=== PATIENT | female | born 1980 | race Hispanic/Latino ===

== ENCOUNTER 2025-02-17 12:12 | Inpatient (IN) | payer SELFPAY ==
[~2025-02-17] VITALS: Ht 165.1 cm; Wt 91.0 kg
[2025-02-17] MEDS ORDERED: NITROGLYCERIN 0.4 MG SL TAB SL PRN (13:00)
[2025-02-17] MEDS ORDERED: LACTULOSE 20 GM/30 ML UDCUP PO PRN (13:00)
[2025-02-17] MEDS ORDERED: DEXTROSE 50%-WATER 50 ML DISP.SYRIN IV PRN (13:00)
[2025-02-17] MEDS ORDERED: MAGNESIUM 2GM PREMIX 50ML 50 ML IV PRN (13:00)
[2025-02-17] MEDS ORDERED: MAG/ALUM/SIMETH 30 ML UDCUP PO PRN (13:00)
[2025-02-17] MEDS ORDERED: guaiFENesin-DM 200/20MG 10ML PO PRN (13:00)
[2025-02-17] MEDS ORDERED: GLUCAGON 1MG KIT 1 MG ML IM PRN (13:00)
[2025-02-17] MEDS ORDERED: PoTASSium chl 10% ELIXIR 20MEQ 20 MEQ/15 ML UDCUP PO PRN (13:00)
[2025-02-17] MEDS ORDERED: FAMOTIDINE 20MG VIAL IV PRN (13:00)
[2025-02-17 13:23] LABS: IMMATURE GRANULOCYTE ABSOLUTE 0.06 K/uL (0-1); NUCLEATED RED BLOOD CELLS 0.0 % (0.0-0.19); PLATELET COUNT (AUTO) 368 K/uL (130-400); RED BLOOD CELL COUNT(AUTO) 4.72 MIL/uL (4.00-5.50); RED CELL DISTRIBUTION WIDTH 12.0 % (11.0-15.5); WHITE BLOOD COUNT (AUTO) 9.6 K/uL (4.8-10.8)
[2025-02-17 13:31] LABS: APPEARANCE,URINE CLOUDY (CLEAR); GLUCOSE, URINE (UA) NEGATIVE (NEGATIVE); LEUKOCYTE ESTERASE ,URINE NEGATIVE Leu/uL (NEGATIVE); NITRATE,URINE NEGATIVE (NEGATIVE); OCCULT BLOOD,URINE LARGE (NEGATIVE)
[2025-02-17 13:33] LABS: INFLUENZA TYPE B Negative For Type B (NEGATIVE)
[2025-02-17] MEDS: ZOSYN 3.375GM+NS 50ML 50 ML IV SCH (13:34)
[2025-02-17] MEDS: 0.9%NACL 1000ML 1,000 ML IV SCH (13:34)
[2025-02-17 13:39] LABS: SQUAMOUS EPITHELIAL CELL,UR MOD /HPF (0-2)
[2025-02-17 13:40] LABS: AMPHET/METH SCREEN,URINE NEGATIVE (NEGATIVE); BARBITURATE SCREEN, URINE NEGATIVE (NEGATIVE); CANNABINOID SCREEN,URINE NEGATIVE (NEGATIVE); COCAINE SCREEN,URINE NEGATIVE (NEGATIVE)
[2025-02-17 13:44] LABS: INFLUENZA TYPE A Positive For Type A (NEGATIVE)
--- NOTE | 2025-02-17 16:07 | HP ---
[facility] HISTORY AND PHYSICAL Date of Service: Feb 17, 2025 Time of Service: 16:00 PCP: Dr. Raygoza Admitting: Dr Hernandez, Allergies: No Allergy Information Available, No Known Drug Allergies HISTORY OF PRESENT ILLNESS: [ Patient is 44 years old female with a past medical history of cholecystectomy and left breast mass s/p biopsy, who came to emergency department from Dr. Jana robledo office for evaluation of possible abscess on left breast. Recently patient was found to have a mass on her left breast. Dr. Lopez order ultrasound breaths and showed abnormalities. Patient underwent biopsy and aspiration of the fluids from the left breast on February 06 2025 at [facility]. Patient then was sent home. Today patient came to Dr. Lopez office for follow-up and there complain of left breast pain, redness and swelling. CLAUDINE La from Dr Hammonds office, requested that the patient was sent to emergency department for further recommendations were Dr. Hammonds would be consulted for possible I and D. Most recent vital signs temperature 98.1 pulse 82 respirations 16 blood pressure 127/78 patient is on room air satting 99%. WBC 9.6 hemoglobin 14.4 hematocrit 42.6 platelets 368. Urinalysis negative. Influenza A positive influenza B negative POA Toxicology negative. Lactic acid 1.0. Chest CT pending Patient will be admitted under hospitalist care for further evaluation/recommendation. Surgeon was consulted] REVIEW OF SYSTEMS CONSTITUTIONAL: Denies fevers, chills, or night sweats. No unintentional weight loss reported. NEUROLOGICAL: Denies headache, amaurosis fugax, motor weakness, sensory deficit, vertigo/spinning sensation, gait abnormalities, or tremors. ENT: No hearing loss, otalgia, otorrhea, rhinitis, rhinorrhea, hoarseness, or sore throat. CARDIOVASCULAR: Denies any exertional angina, dyspnea on exertion, orthopnea, paroxysmal nocturnal dyspnea, palpitations, life-threatening arrhythmias, claudication. PULMONARY: Denies any shortness of breath, cough, phlegm/sputum, hemoptysis, pl euritic chest pain. SLEEP: Denies morning headaches, daytime somnolence or napping. Denies difficulty falling asleep, staying asleep, waking from sleep. Denies knowledge of snoring. GASTROINTESTINAL: Denies any type of dysphagia to either liquids or solids. Denies nausea, vomiting, pyrosis, early satiety, abdominal pain, diarrhea, constipation, or changes in stool consistency or caliber. Denies coffee-ground emesis, hematemesis, hematochezia, or melanotic stools. GENITOURINARY: Denies frequency, urgency, nocturia, hematuria or incontinence (Storage/Irritative symptoms.) Low urinary stream, straining to void, urinary intermittency or hesitancy, splitting of the voiding stream, terminal dribbling. ENDOCRINOLOGIC: Denies polyuria, polydipsia, polyphagia or heat/cold intolera nces. HEMATOLOGIC: Denies thrombophilia/previous clots, or coagulopathy/bleeding disorders. ONCOLOGIC: Denies personal history of malignancy. DERMATOLOGIC: Denies rashes or pruritus. Complains of left breast pain, redness and swelling PSYCHIATRIC: Denies any suicidal or homicidal ideation. Denies hallucinations. PAST MEDICAL HISTORY: [ Left breast mass, kidney stones] PAST SURGICAL HISTORY: [ Cholecystectomy ] PAST SOCIAL HISTORY: [ Patient denies smoking. Patient denies any drug illicit. Patient denies alcohol use ] FAMILY HISTORY: [ Patient lives at home with the two kids. Patient dependent] Coded Allergies: No Known Allergies (Unverified Allergy, Unknown, 02/17/25) PHYSICAL EXAM GENERAL APPEARANCE: The patient is awake, alert, and oriented, in no acute cardiopulmonary distress. NEUROLOGICAL: Cranial nerves II-XII grossly intact. Motor is 5/5 in bilateral upper and lower extremities proximal to distal. No sensory deficits. HEENT: Face is symmetric. Pupils are equal and reactive. Extraocular movements are intact. NECK: Supple. No JVD. No thyromegaly. No submental, submandibular, pre- /postauricular, occipital or supraclavicular lymphadenopathy. CHEST: Normal chest expansion. No Telemetry. LUNGS: Absence of any rales, rhonchi or any wheezing. CARDIOVASCULAR: Regular. S1 and S2 normal. No appreciable rubs, murmurs or gallops. ABDOMEN: Soft, nontender, and nondistended. There is no rebound, voluntary guarding, or rigidity. : Deferred. No [place]. EXTREMITIES: Non-edematous and not cyanotic. No clubbing. Good capillary refill. SKIN: No skin breakdown. Vital Sign (Last 24 Hours) 02/17/25 12:13 Temp 98.1 Pulse 82 Resp 16 B/P (MAP) 127/78 Pulse Ox 99 O2 Delivery Room Air O2 Flow Rate 0 LABS: Laboratory: Test 02/17/25 13:16 02/17/25 13:13 02/17/25 13:10 Range/Units Influenza Type A Antigen Positive For Type A *A NEGATIVE Influenza Type B Antigen Negative For Type B NEGATIVE Urine Opiates Screen NEGATIVE NEGATIVE Urine Barbiturates Screen NEGATIVE NEGATIVE Urine Phencyclidine Screen NEGATIVE NEGATIVE Urine Amphetamines Screen NEGATIVE NEGATIVE Urine Benzodiazepines Screen NEGATIVE NEGATIVE Urine Cocaine Screen NEGATIVE NEGATIVE Urine Marijuana (THC) Screen NEGATIVE NEGATIVE White Blood Count 9.6 4.8-10.8 K/uL Red Blood Count 4.72 4.00-5.50 MIL/uL Hemoglobin 14.4 12.0-16.0 g/dL Hematocrit 42.6 36-48 % Mean Corpuscular Volume 90.3 79-99 fL Mean Corpuscular Hemoglobin 30.5 27.0-33.0 pg Mean Corpuscular Hemoglobin Concent 33.8 32.0-36.0 g/dL Red Cell Distribution Width 12.0 11.0-15.5 % Platelet Count 368 130-400 K/uL Mean Platelet Volume 8.8 7.5-10.5 fL Immature Granulocyte % (Auto) 0.6 0-1 % Neutrophils (%) (Auto) 71.7 40.0-77.0 % Lymphocytes (%) (Auto) 17.5 L 21.0-51.0 % Monocytes (%) (Auto) 5.0 3.0-13.0 % Eosinophils (%) (Auto) 4.5 0.0-8.0 % Basophils (%) (Auto) 0.7 0.0-5.0 % Neutrophils # (Auto) 6.8 1.8-7.7 K/uL Lymphocytes # (Auto) 1.7 1.0-4.8 K/uL Monocytes # (Auto) 0.5 0.1-1.0 K/uL Eosinophils # (Auto) 0.43 0.00-0.70 K/uL Basophils # (Auto) 0.07 0.00-0.20 K/uL Absolute Immature Granulocyte (auto 0.06 0-1 K/uL Nucleated Red Blood Cells 0.0 0.0-0.19 % Urine Color COLORLESS YELLOW Urine Appearance CLOUDY H CLEAR Urine pH 5.5 5.0-8.0 Urine Specific [place] 1.005 1.001-1.031 Urine Protein NEGATIVE NEGATIVE mg/dL Urine Glucose (UA) NEGATIVE NEGATIVE mg/dL Urine Ketones NEGATIVE NEGATIVE mg/dL Urine Occult Blood LARGE H NEGATIVE Urine Nitrate NEGATIVE NEGATIVE Urine Bilirubin NEGATIVE NEGATIVE mg/dL Urine Urobilinogen 0.2 0.2-1.0 mg/dL Urine Leukocyte Esterase NEGATIVE NEGATIVE Sanjana/uL Urine RBC 2-5 H 0-1 /HPF Urine WBC 2-5 H 0-1 /HPF Urine Squamous Epithelial Cells MOD 0-2 /HPF Urine Bacteria MOD None Seen /HPF Lactic Acid Level 1.0 0.8-2.5 mmol/L Current Medications Medications (Trade) Dose Ordered Sig/Katina Route PRN Reason Start Time Stop Time Status Last Admin Dose Admin Acetaminophen (TYLenol 325MG TAB) 650 mg Q4H PRN PO MILD PAIN (1-3) 02/17/25 13:00 03/19/25 12:59 Acetaminophen (TYLenol 325MG TAB) 650 mg Q6H PRN PO TEMPERATURE GREATER THAN 101.5 02/17/25 13:00 03/19/25 12:59 Acetaminophen (TYLenol 325MG TAB) 650 mg Q6H PRN PO MILD PAIN (1-3) 02/17/25 13:00 02/17/25 13:06 DC Al Hydroxide/Mg Hydroxide (MAALox PLUS 30ML) 30 ml Q6H PRN PO INDIGESTION 02/17/25 13:00 03/19/25 12:59 Dextrose (D50w) 50 ml AD PRN IV HYPOGLYCEMIA PROTOCOL 02/17/25 13:00 03/19/25 12:59 Diphenhydramine HCl (BENAdryl INJ) 25 mg Q6H PRN IV SEVERE ITCHING/RASH 02/17/25 13:00 03/19/25 12:59 Famotidine (Pepcid 20mg Vial) 20 mg BID IV 02/17/25 21:00 03/19/25 20:59 Famotidine (Pepcid 20mg Vial) 20 mg BID PRN IV NAUSEA/VOMITING 02/17/25 13:00 02/17/25 13:06 DC Glucagon (Glucagon 1mg Kit) 1 mg AD PRN IM HYPOGLYCEMIA PROTOCOL 02/17/25 13:00 03/19/25 12:59 Guaifenesin/ Dextromethorphan (RobiTUSSin DM 200/20MG 10ML) 10 ml Q4H PRN PO COUGH 02/17/25 13:00 03/19/25 12:59 Heparin Sodium (Porcine) (HEParin 5,000 UNIT VIAL) 5,000 unit BID SQ 02/17/25 21:00 03/19/25 20:59 Hydralazine HCl (APRESOLine 20MG INJ) 10 mg Q6H PRN IV For:SBP above 160;DBP above 90 02/17/25 13:00 03/19/25 12:59 Ibuprofen (moTRIN) 800 mg Q8H PRN PO MODERATE PAIN (4-6) 02/17/25 13:00 03/19/25 12:59 Insulin Human Regular (humuLIN R 100 UNIT/ML 3ML) INSULIN SLIDING SCAL... ACHS SQ 02/17/25 16:30 03/19/25 16:29 Ketorolac Tromethamine (toRADol) 15 mg Q8H PRN IV MODERATE PAIN (4-6) 02/17/25 13:00 02/17/25 13:06 DC Lactulose (Constulose 20gm/ 30ml Udcup) 20 gm BID PRN PO CONSTIPATION 02/17/25 13:00 03/19/25 12:59 Magnesium Sulfate 50 ml @ 0 mls/hr PROTOCOL PRN IV other 02/17/25 13:00 03/19/25 12:59 Morphine Sulfate (morPHINE 2MG SYG) 1 mg Q4H PRN IVP SEVERE PAIN (7-10) 02/17/25 13:00 02/24/25 12:59 Nitroglycerin (Nitrostat) 0.4 mg PROTOCOL PRN SL CHEST PAIN 02/17/25 13:00 03/19/25 12:59 Ondansetron HCl (zoFRAN 4MG INJ) 4 mg Q6H PRN IV NAUSEA/VOMITING 02/17/25 13:00 03/19/25 12:59 Oxycodone/ Acetaminophen (perCOCET) 1 tab Q6H PRN PO SEVERE PAIN (7-10) 02/17/25 13:00 02/17/25 13:06 DC Piperacillin Sod/ Tazobactam Sod 50 ml @ 12.5 mls/hr ZOSY8 IV 02/17/25 13:00 02/27/25 12:59 02/17/25 13:34 12.5 MLS/HR Potassium Chloride 100 ml @ 100 mls/hr AD PRN IV POTASSIUM PROTOCOL 02/17/25 13:00 03/19/25 12:59 Potassium Chloride (K-Dur/Klor-Con 20meq) 20 meq AD PRN PO POTASSIUM PROTOCOL 02/17/25 13:00 03/19/25 12:59 Potassium Chloride (KCl 10% Elixir 20meq/15ml) 20 meq AD PRN PO POTASSIUM PROTOCOL 02/17/25 13:00 03/19/25 12:59 Sodium Chloride 1,000 ml @ 100 mls/hr Q10H IV 02/17/25 13:00 03/19/25 12:59 02/17/25 13:34 100 MLS/HR Zolpidem Tartrate (AmbIEN) 5 mg HS PRN PO INSOMNIA 02/17/25 13:00 03/19/25 12:59 DIAGNOSTICS / RADIOLOGY: [ ] ASSESSMENT: [Left breast abscess POA Recent history of left breast mass s/p biopsy with fluid aspiration POA Influenza a and positive POA Hypertension POA Hyperlipidemia POA History of kidney stones POA History of cholecystectomy POA ] PLAN: [Patient admitted to medical-surgical floor with telemetry Continue Zosyn antibiotics Normal saline at 100 mL/hour Tamiflu for influenza A positive Surgeon consulted CT chest without contrast pending Initiate hyper and hypoglycemia protocol Initiate hypomagnesemia protocol Hypokalemia protocol Blood culture pending I's and nose per shift Daily weights PRN medication ordered Culture urine Culture blood A.m. labs Cardiac diet ] ADVANCED CARE PLANNING 1. Which of the following were discussed? Hospice Care - Yes / No Therapeutic options - Yes / No Advance Directives - Yes / No Other discussions - 2. Discussed with who? Patient 3. Voluntary nature of this service was explained to the patient? Yes / No 4. Amount of time spent - __ more than 35 minutes 5. Reviewed by Physician? (if this service was performed by NPP) Yes / No ATTESTATION BY PHYSICIAN I have seen and examined the patient. I reviewed the documentation, medical decision making, and treatment plan as noted by the mid-level provider above. I agree with the findings and plan of care. ARIC HERNANDEZ MD, KATARZYNA B FNP Feb 17, 2025 16:07
--- NOTE | 2025-02-17 16:14 | NUR ---
CLAUDINE RANDALL AT THE BEDSIDE. GENERAL SURGERY CONSULT COMPLETE
--- NOTE | 2025-02-17 17:04 | CONS ---
CONSULT NOTE: Consulting physician: Dr. Hernandez Consulting service: General surgery Reason for consultation: Left breast abscess History of present illness: This is a 44-year-old female known to our practice after undergoing right breast I and D by Dr. Lopez has been following our practice for concerns of developing left breast mass versus abscess. Patient has had gone for imaging were concerns of abscess noted in purulent fluid was aspirated. Multiple biopsies taken. Patient has had follow up in clinic today and due to concerns of continued abscess was referred to the hospital for further evaluation. Patient is seen in ER resting. On exam left breast areola with induration and tenderness with no active drainage noted. Patient is currently pending CT to chest. WBCs 9.6 with a hemoglobin of 14.4. Patient is currently on IV fluids and IV antibiotics and NPO Medical history: Surgical history: Previous right breast I and D Cholecystectomy Review of systems: General: No Fever, No Chills, No Night Sweats, No Fatigue, No Malaise, No Appetite, No Other HEENT: No Head Aches, No Visual Changes, No Eye Pain, No Ear Pain, No Dysphasia, No Sinus Congestion, No Post Nasal Drip, No Sore Throat, No Other Pulmonary: No Dyspnea, No Cough, No Pleuritic Chest Pain, No Other Cardiovascular: No: Chest Pain, Palpitations, Orthopnea, Paroxysmal No Dyspnea, Edema, Lt Headedness, Other Gastrointestinal: No: Nausea, Vomiting, Diarrhea, Constipation, Melena, Hematochezia, Other Genitourinary: No Dysuria, No Frequency, No Incontinence, No Hematuria, No Retention, No Other Musculoskeletal: No: other, neck pain, shoulder pain, arm pain, back pain, hand pain, leg pain, foot pain Skin: No Urticaria, No Rash, No Other Neurological: No: Weakness, Numbness, Incoordination, Change in speech, Confusion, Seizures, Other Physical exam: General: Awake alert and oriented Heart: Regular rate and rhythm} Lungs: Clear to auscultation no distress Abdomen: [Soft, nontender, nondistended Left breast areola with a induration and tenderness and possible fluctuance Assessment: This is a 44-year-old female with concerns of left breast abscess Plan: At this point in time patient will be started on warm compresses Patient to be allowed diet We will await CT findings Possible need for I and D if imaging consistent with the abscess Dr. Tucker to be updated in patient's status and surgical team to follow patient closely Surgical case has been discussed with my supervising physician in the above plan was formulated and agreed upon Supervising physicians evaluation the patient be done within next 24 hours We appreciate the hospitalist team for us to participate in patient's care. Greater than 55 minutes of time spent patient, reviewing chart, working on documentation PRAKASH KNOTT Jr. PAC Feb 17, 2025 17:04
[2025-02-17] MEDS: FAMOTIDINE 20MG VIAL IV SCH (20:59)
[2025-02-17] MEDS: OSELTAMIVIR PHOSPHATE 75 MG CAP PO SCH (20:59)
[2025-02-17 22:20] VITALS: BP 135/77; PULSE 80; RESP 18; TEMP 98; O2SAT 100
--- NOTE | 2025-02-17 22:20 | NUR ---
ARRIVAL PATIENT ALERT AND ORIENTED TIMES 4. PLAN OF CARE DISCUSSED WITH HER AND SHE VERBALIZED UNDERSTANDING. SHE ONLY TAKES 2 VITAMINS AT HOME. SHE IS ON HER MENSTRUAL CYCLE RIGHT NOW. WARM PACKS APPLIED TO HER LEFT BREAST ORDERED. SHE HAS SHOWERED ON ARRIVAL. SHE HAS MILD TO MODERATE LEFT BREAST PAIN RELIEVED BY PAIN MEDICATION AND WARM PACKS. SHE HAS SLEPT ABOUT 4 HOURS TONIGHT. SHE IS AMBULATORY WITHOUT HELP. PICTURES TAKEN OF HER LEFT BREAST AREA WITH IPAD. CALL LIGHT WITHIN REACH, BED ALARM ON, 2 SIDE RAILS UP. WILL CONTINUE TO MONITOR PATIENT.
[2025-02-17] MEDS ORDERED: MVIT PO (23:00)
[2025-02-17] MEDS ORDERED: VITA100059 PO (23:00)
[2025-02-18] VITALS (7 sets, daily range): BP systolic 96–123; BP diastolic 63–73; PULSE 74–93; RESP 16–20; TEMP 97.6–98.8; O2SAT 93
[2025-02-18 05:47] LABS: IMMATURE GRANULOCYTE ABSOLUTE 0.02 K/uL (0-1); NUCLEATED RED BLOOD CELLS 0.0 % (0.0-0.19); PLATELET COUNT (AUTO) 284 K/uL (130-400); RED BLOOD CELL COUNT(AUTO) 3.87 MIL/uL (4.00-5.50); RED CELL DISTRIBUTION WIDTH 11.9 % (11.0-15.5); WHITE BLOOD COUNT (AUTO) 8.1 K/uL (4.8-10.8)
[2025-02-18 06:20] LABS: ASPARTATE AMINOTRANSFERASE 16.0 U/L (10-37); CREATINE KINASE, TOTAL 62.0 U/L (21-232); CREATININE 0.7 mg/dL (0.5-1.0); GLOMERULAR FILTR. RATE CALC 111.0 mL/min (>90); GLUCOSE,RANDOM 90.0 mg/dL (70-105); SODIUM SERUM 138.0 mmol/L (136-145); TOTAL PROTEIN, SERUM 6.8 g/dL (6.0-8.3); UREA NITROGEN, BLOOD 13.0 mg/dL (7-18)
[2025-02-18] MEDS: PoTASSium chloRIDE 20MEQ ER 20 MEQ ERTAB PO PRN (06:30)
--- NOTE | 2025-02-18 10:22 | HMCIMG ---
EXAM: CT Chest Without IV contrast. CLINICAL HISTORY: abscess left breast TECHNIQUE: Axial computed tomography images of the chest without intravenous contrast. COMPARISON: None provided. FINDINGS: LUNGS: Pulmonary nodule measuring 4 mm along the left upper lobe. A 3.6 mm calcified pleural nodule along the right lower lobe. The rest of the lungs appear essentially clear. CHEST WALL / BREASTS: Ill-defined multifocal hypodense areas within the left breast parenchyma, predominantly involving the outer and lower quadrant, with surrounding fat stranding and a tiny subcentimeter-sized adjacent calcific focus. It abuts the overlying skin and nipple with possible nipple retraction. No evidence of infiltration of the underlying chest wall musculature. The largest collection measures 62 x 45 mm and 41 x 24 mm. OSSEOUS STRUCTURES: Normal.PLEURAL SPACES: No evidence of pneumothorax. No pleural effusion. HEART: No cardiomegaly. No significant pericardial effusion. LYMPH NODES: A few subcentimeter-sized bilateral axillary (left more than right) lymph nodes. UPPER ABDOMEN: The upper abdominal solid organs are unremarkable. BONES: No acute osseous abnormality. IMPRESSION: Study limited withot contrast. Left breast multifocal hypodense areas with surrounding fat stranding, consistent with breast abscess. Largest collection measures 62 x 45 mm. Underlying mass is not excluded. 4 mm nodule in the left upper lobe. A follow-up CT 12 months is recommended. /Ilene
--- NOTE | 2025-02-18 12:09 | NUR ---
DCP:HOME Pt currently lives at home with her mother and 2 young children. Pt receives $778 in SNAP benefits. Pt denies any DME, home health, or provider services. Pt states that she is able to complete ADLs independently. PCP is Dr. Raygoza and uses [facility] for any RX needs. At DC pt will want to go home and family can assist with transportation.
--- NOTE | 2025-02-18 13:51 | PN ---
[facility] PROGRESS NOTE Date of Service: Feb 18, 2025 Time of Service: 13:50 SUBJECTIVE: 02/18 patient remains admitted to medical floor, comfortably in bed, no acute events overnight, alert oriented x3, hemodynamically stable, afebrile, saturating normal on room air. Hemoglobin 8.9, hematocrit 34.4. Examination done with a female nurse staff at bedside shows an area of induration left breast area, next to the areola. Patient evaluated by General surgery, patient may require incision and drainage. We will follow up. REVIEW OF SYSTEMS CONSTITUTIONAL: Denies fevers, chills, or night sweats. No unintentional weight loss reported. NEUROLOGICAL: Denies headache, amaurosis fugax, motor weakness, sensory deficit, vertigo/spinning sensation, gait abnormalities, or tremors. ENT: No hearing loss, otalgia, otorrhea, rhinitis, rhinorrhea, hoarseness, or sore throat. CARDIOVASCULAR: Denies any exertional angina, dyspnea on exertion, orthopnea, paroxysmal nocturnal dyspnea, palpitations, life-threatening arrhythmias, claudication. PULMONARY: Denies any shortness of breath, cough, phlegm/sputum, hemoptysis, pleuritic chest pain. SLEEP: Denies morning headaches, daytime somnolence or napping. Denies difficulty falling asleep, staying asleep, waking from sleep. Denies knowledge of snoring. GASTROINTESTINAL: Denies any type of dysphagia to either liquids or solids. Denies nausea, vomiting, pyrosis, early satiety, abdominal pain, diarrhea, constipation, or changes in stool consistency or caliber. Denies coffee-ground emesis, hematemesis, hematochezia, or melanotic stools. GENITOURINARY: Denies frequency, urgency, nocturia, hematuria or incontinence (Storage/Irritative symptoms.) Low urinary stream, straining to void, urinary intermittency or hesitancy, splitting of the voiding stream, terminal dribbling. ENDOCRINOLOGIC: Denies polyuria, polydipsia, polyphagia or heat/cold intolerances. HEMATOLOGIC: Denies thrombophilia/previous clots, or coagulopathy/bleeding disorders. ONCOLOGIC: Denies personal history of malignancy. DERMATOLOGIC: Denies rashes or pruritus. Complains of left breast pain, redness and swelling PSYCHIATRIC: Denies any suicidal or homicidal ideation. Denies hallucinations. PHYSICAL EXAM GENERAL APPEARANCE: The patient is awake, alert, and oriented, in no acute cardiopulmonary distress. NEUROLOGICAL: Cranial nerves II-XII grossly intact. Motor is 5/5 in bilateral upper and lower extremities proximal to distal. No sensory deficits. HEENT: Face is symmetric. Pupils are equal and reactive. Extraocular movements are intact. NECK: Supple. No JVD. No thyromegaly. No submental, submandibular, pre-/pos tauricular, occipital or supraclavicular lymphadenopathy. CHEST: Normal chest expansion. No Telemetry. LUNGS: Absence of any rales, rhonchi or any wheezing. CARDIOVASCULAR: Regular. S1 and S2 normal. No appreciable rubs, murmurs or gallops. ABDOMEN: Soft, nontender, and nondistended. There is no rebound, voluntary guarding, or rigidity. : Deferred. No [place]. EXTREMITIES: Non-edematous and not cyanotic. No clubbing. Good capillary refill. SKIN: No skin breakdown. Vital Signs (last 8hr) Date Time Temp Pulse Resp B/P (MAP) Pulse Ox O2 Delivery O2 Flow Rate FiO2 02/18/25 12:00 98.4 75 16 99/64 99 Room Air 02/18/25 08:00 97.5 78 17 106/63 98 Room Air LABS: Laboratory: Test 02/18/25 11:04 02/18/25 05:38 02/17/25 13:16 02/17/25 13:13 Range/Units Whole Blood Glucose 92 70-110 MG/DL White Blood Count 8.1 4.8-10.8 K/uL Red Blood Count 3.87 L 4.00-5.50 MIL/uL Hemoglobin 11.9 L 12.0-16.0 g/dL Hematocrit 34.4 L 36-48 % Mean Corpuscular Volume 88.9 79-99 fL Mean Corpuscular Hemoglobin 30.7 27.0-33.0 pg Mean Corpuscular Hemoglobin Concent 34.6 32.0-36.0 g/dL Red Cell Distribution Width 11.9 11.0-15.5 % Platelet Count 284 130-400 K/uL Mean Platelet Volume 8.9 7.5-10.5 fL Immature Granulocyte % (Auto) 0.2 0-1 % Neutrophils (%) (Auto) 61.5 40.0-77.0 % Lymphocytes (%) (Auto) 22.5 21.0-51.0 % Monocytes (%) (Auto) 8.9 3.0-13.0 % Eosinophils (%) (Auto) 6.3 0.0-8.0 % Basophils (%) (Auto) 0.6 0.0-5.0 % Neutrophils # (Auto) 4.9 1.8-7.7 K/uL Lymphocytes # (Auto) 1.8 1.0-4.8 K/uL Monocytes # (Auto) 0.7 0.1-1.0 K/uL Eosinophils # (Auto) 0.51 0.00-0.70 K/uL Basophils # (Auto) 0.05 0.00-0.20 K/uL Absolute Immature Granulocyte (auto 0.02 0-1 K/uL Nucleated Red Blood Cells 0.0 0.0-0.19 % Sodium Level 138 136-145 mmol/L Potassium Level 3.5 3.5-5.1 mmol/L Chloride Level 104 101-111 mmol/L Carbon Dioxide Level 26 21-32 mmol/L Blood Urea Nitrogen 13 7-18 mg/dL Creatinine 0.7 0.5-1.0 mg/dL Glomerular Filtration Rate Calc 111 >90 mL/min Random Glucose 90 70-105 mg/dL Lactic Acid Level 1.0 0.8-2.5 mmol/L Total Calcium 7.8 L 8.5-10.1 mg/dL Magnesium Level 2.00 1.80-2.40 mg/dL Total Bilirubin 0.7 0.2-1.0 mg/dL Aspartate Amino Transf (AST/SGOT) 16 10-37 U/L Alanine Aminotransferase (ALT/SGPT) 28 12-78 U/L Alkaline Phosphatase 108 50-136 U/L Ammonia 19 11-32 umol/L Total Creatine Kinase 62 21-232 U/L B-Type Natriuretic Peptide 12 0-100 pg/mL Total Protein 6.8 6.0-8.3 g/dL Albumin 3.0 L 3.5-5.0 g/dL Amylase Level 44 25-115 U/L Lipase 20 16-77 U/L Procalcitonin < 0.05 L 0.05-0.5 ng/mL Thyroid Stimulating Hormone (TSH) 2.43 0.36-3.74 uIU/mL Free Thyroxine (T4) Direct 1.13 0.76-1.46 ng/dL Free Triiodothyronine (T3) pg/mL 2.53 2.18-3.98 pg/mL Influenza Type A Antigen Positive For Type A *A NEGATIVE Influenza Type B Antigen Negative For Type B NEGATIVE Urine Opiates Screen NEGATIVE NEGATIVE Urine Barbiturates Screen NEGATIVE NEGATIVE Urine Phencyclidine Screen NEGATIVE NEGATIVE Urine Amphetamines Screen NEGATIVE NEGATIVE Urine Benzodiazepines Screen NEGATIVE NEGATIVE Urine Cocaine Screen NEGATIVE NEGATIVE Urine Marijuana (THC) Screen NEGATIVE NEGATIVE Test 02/17/25 13:10 Range/Units Urine Color COLORLESS YELLOW Urine Appearance CLOUDY H CLEAR Urine pH 5.5 5.0-8.0 Urine Specific [place] 1.005 1.001-1.031 Urine Protein NEGATIVE NEGATIVE mg/dL Urine Glucose (UA) NEGATIVE NEGATIVE mg/dL Urine Ketones NEGATIVE NEGATIVE mg/dL Urine Occult Blood LARGE H NEGATIVE Urine Nitrate NEGATIVE NEGATIVE Urine Bilirubin NEGATIVE NEGATIVE mg/dL Urine Urobilinogen 0.2 0.2-1.0 mg/dL Urine Leukocyte Esterase NEGATIVE NEGATIVE Sanjana/uL Urine RBC 2-5 H 0-1 /HPF Urine WBC 2-5 H 0-1 /HPF Urine Squamous Epithelial Cells MOD 0-2 /HPF Urine Bacteria MOD None Seen /HPF Hemoglobin A1c 5.4 4.0-6.0 % Estimated Average Glucose (eAG) 108 70-126 mg/dL Current Medications Medications (Trade) Dose Ordered Sig/Katina Route PRN Reason Start Time Stop Time Status Last Admin Dose Admin Acetaminophen (TYLenol 325MG TAB) 650 mg Q4H PRN PO MILD PAIN (1-3) 02/17/25 13:00 03/19/25 12:59 02/17/25 18:19 650 MG Acetaminophen (TYLenol 325MG TAB) 650 mg Q6H PRN PO TEMPERATURE GREATER THAN 101.5 02/17/25 13:00 03/19/25 12:59 Acetaminophen (TYLenol 325MG TAB) 650 mg Q6H PRN PO MILD PAIN (1-3) 02/17/25 13:00 02/17/25 13:06 DC Al Hydroxide/Mg Hydroxide (MAALox PLUS 30ML) 30 ml Q6H PRN PO INDIGESTION 02/17/25 13:00 03/19/25 12:59 Dextrose (D50w) 50 ml AD PRN IV HYPOGLYCEMIA PROTOCOL 02/17/25 13:00 03/19/25 12:59 Diphenhydramine HCl (BENAdryl INJ) 25 mg Q6H PRN IV SEVERE ITCHING/RASH 02/17/25 13:00 03/19/25 12:59 Famotidine (Pepcid 20mg Vial) 20 mg BID IV 02/17/25 21:00 03/19/25 20:59 02/18/25 08:19 20 MG Famotidine (Pepcid 20mg Vial) 20 mg BID PRN IV NAUSEA/VOMITING 02/17/25 13:00 02/17/25 13:06 DC Glucagon (Glucagon 1mg Kit) 1 mg AD PRN IM HYPOGLYCEMIA PROTOCOL 02/17/25 13:00 03/19/25 12:59 Guaifenesin/ Dextromethorphan (RobiTUSSin DM 200/20MG 10ML) 10 ml Q4H PRN PO COUGH 02/17/25 13:00 03/19/25 12:59 Heparin Sodium (Porcine) (HEParin 5,000 UNIT VIAL) 5,000 unit BID SQ 02/17/25 21:00 03/19/25 20:59 02/18/25 08:23 5,000 UNIT Hydralazine HCl (APRESOLine 20MG INJ) 5 mg Q6H PRN IV For:SBP above 160;DBP above 90 02/18/25 13:00 03/20/25 12:59 Hydralazine HCl (APRESOLine 20MG INJ) 10 mg Q6H PRN IV For:SBP above 160;DBP above 90 02/17/25 13:00 02/18/25 09:28 DC Ibuprofen (moTRIN) 800 mg Q8H PRN PO MODERATE PAIN (4-6) 02/17/25 13:00 03/19/25 12:59 02/18/25 04:07 800 MG Insulin Human Regular (humuLIN R 100 UNIT/ML 3ML) INSULIN SLIDING SCAL... ACHS SQ 02/17/25 16:30 03/19/25 16:29 Ketorolac Tromethamine (toRADol) 15 mg Q8H PRN IV MODERATE PAIN (4-6) 02/17/25 13:00 02/17/25 13:06 DC Lactulose (Constulose 20gm/ 30ml Udcup) 20 gm BID PRN PO CONSTIPATION 02/17/25 13:00 03/19/25 12:59 Magnesium Sulfate 50 ml @ 0 mls/hr PROTOCOL PRN IV other 02/17/25 13:00 03/19/25 12:59 Morphine Sulfate (morPHINE 2MG SYG) 1 mg Q4H PRN IVP SEVERE PAIN (7-10) 02/17/25 13:00 02/17/25 18:00 DC Morphine Sulfate (morPHINE 4MG SYG) 1 mg Q4H PRN IVP SEVERE PAIN (7-10) 02/17/25 18:30 02/24/25 12:59 02/17/25 18:18 1 MG Nitroglycerin (Nitrostat) 0.4 mg PROTOCOL PRN SL CHEST PAIN 02/17/25 13:00 03/19/25 12:59 Ondansetron HCl (zoFRAN 4MG INJ) 4 mg Q6H PRN IV NAUSEA/VOMITING 02/17/25 13:00 03/19/25 12:59 Oseltamivir Phosphate (Tamiflu) 75 mg BID PO 02/17/25 21:00 02/22/25 20:59 02/18/25 08:19 75 MG Oxycodone/ Acetaminophen (perCOCET) 1 tab Q6H PRN PO SEVERE PAIN (7-10) 02/17/25 13:00 02/17/25 13:06 DC Piperacillin Sod/ Tazobactam Sod 50 ml @ 12.5 mls/hr ZOSY8 IV 02/17/25 13:00 02/27/25 12:59 02/18/25 03:55 12.5 MLS/HR Potassium Chloride 100 ml @ 100 mls/hr AD PRN IV POTASSIUM PROTOCOL 02/17/25 13:00 03/19/25 12:59 Potassium Chloride (K-Dur/Klor-Con 20meq) 20 meq AD PRN PO POTASSIUM PROTOCOL 02/17/25 13:00 03/19/25 12:59 02/18/25 06:30 20 MEQ Potassium Chloride (KCl 10% Elixir 20meq/15ml) 20 meq AD PRN PO POTASSIUM PROTOCOL 02/17/25 13:00 03/19/25 12:59 Sodium Chloride 1,000 ml @ 100 mls/hr Q10H IV 02/17/25 13:00 03/19/25 12:59 02/18/25 04:16 100 MLS/HR Zolpidem Tartrate (AmbIEN) 5 mg HS PRN PO INSOMNIA 02/17/25 13:00 03/19/25 12:59 DIAGNOSTICS / RADIOLOGY: [ ] ASSESSMENT: Left breast abscess POA Recent history of left breast mass s/p biopsy with fluid aspiration POA Influenza a and positive POA Hypertension POA Hyperlipidemia POA History of kidney stones POA History of cholecystectomy POA PLAN: patient remains admitted to medical floor, comfortably in bed, no acute events overnight, alert oriented x3, hemodynamically stable, afebrile, saturating normal on room air. Hemoglobin 8.9, hematocrit 34.4. Examination done with a female nurse staff at bedside shows an area of induration left breast area, next to the areola. Patient evaluated by General surgery, patient may require incision and drainage. We will follow up. NEURO: Minimize central acting medications as possible. Fall Precautions. Well lighted room through the day and minimize interruptions through the night to prevent acute delirium. PULMONARY: Supplemental 02 as needed BiPAP as necessary, for respiratory distress Titrate Fio2 to keep Spo2 > or = 90% DuoNebs and CPT as needed IS hourly while awake for pulmonary hygiene prn Out of bed to chair as tolerated Maintain aspiration precautions at all times CARDIOVASCULAR: Follow hemodynamics. Vital signs per facility protocol GI & NUTRITION: Continue nutritional support Aspirations precautions Prokinetic agents and laxatives as needed KIDNEYS & ELECTROLYTES: Strict monitoring of intake and output Daily weights Avoid nephrotoxic agents Monitor electrolytes and replace as needed Goal urine output of 30mL/hr or 0.5mL/kg/hr Medications to be dosed according to renal function. Avoid contrast if possible ENDOCRINE: Maintain blood glucose between 100-180 at all times. Insulin sliding scale for blood glucose management Hypoglycemia and hyperglycemia protocol in place INFECTIOUS DISEASE: Trend temperature, WBC and procalcitonin level Follow cultures, deescalate antibiotics as soon as possible. Panculture if new onset fever HEMATOLOGY & COAGULATION: Monitor H&H. Keep Hgb > 7 Transfuse 1 unit of PRBC for Hgb < 7 Transfuse 1 pack of platelets of platelets < 20, 000 Watch for any signs and symptoms of bleeding SKIN: Pressure ulcer prevention per facility protocol Specialty mattress as needed ORTHO/REHAB Continue PT/OT PRN: MEDICATIONS Tylenol 650 mg po every 4 hrs for fever zofran 4 mg IV every 6 hrs for n/v Hydralazine 5 mg IV every 4 hrs systolic pressure > 160 bowel regiment: lactulose 20 gm PO BID PRN constipation Supportive measures: Continue GI and DVT prophylaxis Disposition: Pending improvement in clinical condition All questions answered time spent: > [address] MD Feb 18, 2025 13:51
--- NOTE | 2025-02-18 16:43 | PN ---
This is a 44-year-old female with concerns of left breast abscess Interval history: This 44-year-old female seen in her room resting Patient continues with warm compresses A 6.2 x 4.5 cm abscess noted on left breast Patient's pain controlled WBCs unremarkable and vitals stable Physical exam General: Awake alert and oriented Heart: Regular rate and rhythm} Lungs: Clear to auscultation no distress Abdomen: [Soft, nontender, nondistended Continued left breast abscess Assessment : This is a 44-year-old female with concerns of left breast abscess Plan: At this point in time patient will be allowed diet Plan will be for I and D tomorrow with surgical team Patient to be made NPO at midnight Continue with warm compresses Continue with the IV fluids and IV antibiotics Surgical case has been discussed with my supervising physician in the above plan was formulated and agreed upon We appreciate the hospitalist team for us to participate in patient's care. Greater than 45 minutes of time spent patient, reviewing chart, working on documentation Vitals/Labs Vital Signs Date Time Temp Pulse Resp B/P (MAP) Pulse Ox O2 Delivery O2 Flow Rate FiO2 02/18/25 12:00 98.4 75 16 99/64 99 Room Air 02/17/25 22:20 0 21 Laboratory Tests 02/18/25 05:38 Medications Current Medications Insulin Human Regular INSULIN SLIDING SCAL... ACHS SQ; Start 02/17/25 at 16:30; Stop 03/19/25 at 16:29 Dextrose 50 ml AD PRN IV; Start 02/17/25 at 13:00; Stop 03/19/25 at 12:59 Glucagon 1 mg AD PRN IM; Start 02/17/25 at 13:00; Stop 03/19/25 at 12:59 Potassium Chloride 100 ml @ 100 mls/hr AD PRN IV; Start 02/17/25 at 13:00; Stop 03/19/25 at 12:59 Potassium Chloride 20 meq AD PRN PO; Start 02/17/25 at 13:00; Stop 03/19/25 at 12:59 Potassium Chloride 20 meq AD PRN PO Last administered on 02/18/25at 06:30; Start 02/17/25 at 13:00; Stop 03/19/25 at 12:59 Magnesium Sulfate 50 ml @ 0 mls/hr PROTOCOL PRN IV; Start 02/17/25 at 13:00; Stop 03/19/25 at 12:59 Diphenhydramine HCl 25 mg Q6H PRN IV; Start 02/17/25 at 13:00; Stop 03/19/25 at 12:59 Acetaminophen 650 mg Q6H PRN PO; Start 02/17/25 at 13:00; Stop 03/19/25 at 12:59 Acetaminophen 650 mg Q4H PRN PO Last administered on 02/17/25at 18:19; Start 02/17/25 at 13:00; Stop 03/19/25 at 12:59 Ondansetron HCl 4 mg Q6H PRN IV; Start 02/17/25 at 13:00; Stop 03/19/25 at 12:59 Zolpidem Tartrate 5 mg HS PRN PO; Start 02/17/25 at 13:00; Stop 03/19/25 at 12:59 Al Hydroxide/Mg Hydroxide 30 ml Q6H PRN PO; Start 02/17/25 at 13:00; Stop 03/19/25 at 12:59 Lactulose 20 gm BID PRN PO; Start 02/17/25 at 13:00; Stop 03/19/25 at 12:59 Nitroglycerin 0.4 mg PROTOCOL PRN SL; Start 02/17/25 at 13:00; Stop 03/19/25 at 12:59 Guaifenesin/ Dextromethorphan 10 ml Q4H PRN PO; Start 02/17/25 at 13:00; Stop 03/19/25 at 12:59 Famotidine 20 mg BID PRN IV; Start 02/17/25 at 13:00; Stop 02/17/25 at 13:06; Status DC Heparin Sodium (Porcine) 5,000 unit BID SQ Last administered on 02/18/25at 08:23; Start 02/17/25 at 21:00; Stop 03/19/25 at 20:59 Acetaminophen 650 mg Q6H PRN PO; Start 02/17/25 at 13:00; Stop 02/17/25 at 13:06; Status DC Ibuprofen 800 mg Q8H PRN PO Last administered on 02/18/25at 04:07; Start 02/17/25 at 13:00; Stop 03/19/25 at 12:59 Ketorolac Tromethamine 15 mg Q8H PRN IV; Start 02/17/25 at 13:00; Stop 02/17/25 at 13:06; Status DC Oxycodone/ Acetaminophen 1 tab Q6H PRN PO; Start 02/17/25 at 13:00; Stop 02/17/25 at 13:06; Status DC Morphine Sulfate 1 mg Q4H PRN IVP; Start 02/17/25 at 13:00; Stop 02/17/25 at 18:00; Status DC Piperacillin Sod/ Tazobactam Sod 50 ml @ 12.5 mls/hr ZOSY8 IV Last administered on 02/18/25at 03:55; Start 02/17/25 at 13:00; Stop 02/27/25 at 12:59 Sodium Chloride 1,000 ml @ 100 mls/hr Q10H IV Last administered on 02/18/25at 04:16; Start 02/17/25 at 13:00; Stop 03/19/25 at 12:59 Hydralazine HCl 10 mg Q6H PRN IV; Start 02/17/25 at 13:00; Stop 02/18/25 at 09:28; Status DC Famotidine 20 mg BID IV Last administered on 02/18/25at 08:19; Start 02/17/25 at 21:00; Stop 03/19/25 at 20:59 Oseltamivir Phosphate 75 mg BID PO Last administered on 02/18/25at 08:19; Start 02/17/25 at 21:00; Stop 02/22/25 at 20:59 Morphine Sulfate 1 mg Q4H PRN IVP Last administered on 02/17/25at 18:18; Start 02/17/25 at 18:30; Stop 02/24/25 at 12:59 Hydralazine HCl 5 mg Q6H PRN IV; Start 02/18/25 at 13:00; Stop 03/20/25 at 12:59 PRAKASH KNOTT Jr. PAC Feb 18, 2025 16:43
[2025-02-19] VITALS (27 sets, daily range): BP systolic 93–117; BP diastolic 53–80; PULSE 60–90; RESP 16–20; TEMP 97–98.3; O2SAT 97–98
[2025-02-19] MEDS: ZOSYN 3.375GM +NS 50ML IV SCH (00:10)
--- NOTE | 2025-02-19 01:32 | NUR ---
nurse note patient alert and oriented times 4. plan of care discussed with her and she verbalized understanding. patient has mild to moderate left breast pain tonight relieved by warm packs and pain medication. she is ambulatory around the room to the restroom. she has slept about 6 hours tonight. consent signed and she is npo after midnight. I let warehouse man know and faxed the procedure to her. she is aware. patient is still on her menstrual cycle menses. call light within reach, bed alarm on, 2 side rails up. will continue to monitor patient.
[2025-02-19 04:00] LABS: NUCLEATED RED BLOOD CELLS 0.0 % (0.0-0.19); PLATELET COUNT (AUTO) 299.0 K/uL (130-400); RED BLOOD CELL COUNT(AUTO) 3.93 MIL/uL (4.00-5.50); RED CELL DISTRIBUTION WIDTH 11.8 % (11.0-15.5); WHITE BLOOD COUNT (AUTO) 8.6 K/uL (4.8-10.8)
[2025-02-19 04:12] LABS: ASPARTATE AMINOTRANSFERASE 13.0 U/L (10-37); CREATININE 0.8 mg/dL (0.5-1.0); GLOMERULAR FILTR. RATE CALC 94.0 mL/min (>90); GLUCOSE,RANDOM 96.0 mg/dL (70-105); SODIUM SERUM 138.0 mmol/L (136-145); TOTAL PROTEIN, SERUM 7.1 g/dL (6.0-8.3); UREA NITROGEN, BLOOD 14.0 mg/dL (7-18)
--- NOTE | 2025-02-19 12:00 | NUR ---
12 O'CLOCK PAIN ASSESSMENT pain assessment not performed at this time, pt off unit for procedure.
--- NOTE | 2025-02-19 13:05 | PN ---
[facility] PROGRESS NOTE Date of Service: Feb 19, 2025 Time of Service: 13:04 SUBJECTIVE: 02/18 patient remains admitted to medical floor, comfortably in bed, no acute events overnight, alert oriented x3, hemodynamically stable, afebrile, saturating normal on room air. Hemoglobin 8.9, hematocrit 34.4. Examination done with a female nurse staff at bedside shows an area of induration left breast area, next to the areola. Patient evaluated by General surgery, patient may require incision and drainage. We will follow up. 02/19 patient remains admitted to medical floor, comfortable in bed, no acute events overnight, discussed with the RN. Patient is scheduled to be taken to the operating room for I and D of left breast area. Continue current pain medication with the adjustment as needed. Continue broad-spectrum IV antibiotics. Continue to follow surgical input and recommendation. Follow a.m. labs. REVIEW OF SYSTEMS CONSTITUTIONAL: Denies fevers, chills, or night sweats. No unintentional weight loss reported. NEUROLOGICAL: Denies headache, amaurosis fugax, motor weakness, sensory deficit, vertigo/spinning sensation, gait abnormalities, or tremors. ENT: No hearing loss, otalgia, otorrhea, rhinitis, rhinorrhea, hoarseness, or sore throat. CARDIOVASCULAR: Denies any exertional angina, dyspnea on exertion, orthopnea, paroxysmal nocturnal dyspnea, palpitations, life-threatening arrhythmias, claudication. PULMONARY: Denies any shortness of breath, cough, phlegm/sputum, hemoptysis, pleuritic chest pain. SLEEP: Denies morning headaches, daytime somnolence or napping. Denies difficulty falling asleep, staying asleep, waking from sleep. Denies knowledge of snoring. GASTROINTESTINAL: Denies any type of dysphagia to either liquids or solids. Denies nausea, vomiting, pyrosis, early satiety, abdominal pain, diarrhea, constipation, or changes in stool consistency or caliber. Denies coffee-ground emesis, hematemesis, hematochezia, or melanotic stools. GENITOURINARY: Denies frequency, urgency, nocturia, hematuria or incontinence (Storage/Irritative symptoms.) Low urinary stream, straining to void, urinary intermittency or hesitancy, splitting of the voiding stream, terminal dribbling. ENDOCRINOLOGIC: Denies polyuria, polydipsia, polyphagia or heat/cold intolerances. HEMATOLOGIC: Denies thrombophilia/previous clots, or coagulopathy/bleeding disorders. ONCOLOGIC: Denies personal history of malignancy. DERMATOLOGIC: Denies rashes or pruritus. Complains of left breast pain, redness and swelling PSYCHIATRIC: Denies any suicidal or homicidal ideation. Denies hallucinations. PHYSICAL EXAM GENERAL APPEARANCE: The patient is awake, alert, and oriented, in no acute cardiopulmonary distress. NEUROLOGICAL: Cranial nerves II-XII grossly intact. Motor is 5/5 in bilateral upper and lower extremities proximal to distal. No sensory deficits. HEENT: Face is symmetric. Pupils are equal and reactive. Extraocular movements are intact. NECK: Supple. No JVD. No thyromegaly. No submental, submandibular, pre- /postauricular, occipital or supraclavicular lymphadenopathy. CHEST: Normal chest expansion. No Telemetry. LUNGS: Absence of any rales, rhonchi or any wheezing. CARDIOVASCULAR: Regular. S1 and S2 normal. No appreciable rubs, murmurs or gallops. ABDOMEN: Soft, nontender, and nondistended. There is no rebound, voluntary guarding, or rigidity. : Deferred. No [place]. EXTREMITIES: Non-edematous and not cyanotic. No clubbing. Good capillary refill. SKIN: No skin breakdown. Vital Signs (last 8hr) Date Time Temp Pulse Resp B/P (MAP) Pulse Ox O2 Delivery O2 Flow Rate FiO2 02/19/25 10:33 97.0 77 18 113/63 99 Room Air 02/19/25 07:09 97.7 60 16 95/60 97 Room Air LABS: Laboratory: Test 02/19/25 09:05 02/19/25 05:15 02/19/25 03:46 02/18/25 05:38 Range/Units Urine HCG, Qualitative NEGATIVE NEGATIVE Whole Blood Glucose 101 70-110 MG/DL White Blood Count 8.6 4.8-10.8 K/uL Red Blood Count 3.93 L 4.00-5.50 MIL/uL Hemoglobin 11.9 L 12.0-16.0 g/dL Hematocrit 34.9 L 36-48 % Mean Corpuscular Volume 88.8 79-99 fL Mean Corpuscular Hemoglobin 30.3 27.0-33.0 pg Mean Corpuscular Hemoglobin Concent 34.1 32.0-36.0 g/dL Red Cell Distribution Width 11.8 11.0-15.5 % Platelet Count 299 130-400 K/uL Mean Platelet Volume 8.8 7.5-10.5 fL Nucleated Red Blood Cells 0.0 0.0-0.19 % Sodium Level 138 136-145 mmol/L Potassium Level 4.0 3.5-5.1 mmol/L Chloride Level 105 101-111 mmol/L Carbon Dioxide Level 26 21-32 mmol/L Blood Urea Nitrogen 14 7-18 mg/dL Creatinine 0.8 0.5-1.0 mg/dL Glomerular Filtration Rate Calc 94 >90 mL/min Random Glucose 96 70-105 mg/dL Total Calcium 8.4 L 8.5-10.1 mg/dL Magnesium Level 2.20 1.80-2.40 mg/dL Total Bilirubin 0.6 0.2-1.0 mg/dL Aspartate Amino Transf (AST/SGOT) 13 10-37 U/L Alanine Aminotransferase (ALT/SGPT) 22 # 12-78 U/L Alkaline Phosphatase 112 50-136 U/L Total Protein 7.1 6.0-8.3 g/dL Albumin 3.1 L 3.5-5.0 g/dL Immature Granulocyte % (Auto) 0.2 0-1 % Neutrophils (%) (Auto) 61.5 40.0-77.0 % Lymphocytes (%) (Auto) 22.5 21.0-51.0 % Monocytes (%) (Auto) 8.9 3.0-13.0 % Eosinophils (%) (Auto) 6.3 0.0-8.0 % Basophils (%) (Auto) 0.6 0.0-5.0 % Neutrophils # (Auto) 4.9 1.8-7.7 K/uL Lymphocytes # (Auto) 1.8 1.0-4.8 K/uL Monocytes # (Auto) 0.7 0.1-1.0 K/uL Eosinophils # (Auto) 0.51 0.00-0.70 K/uL Basophils # (Auto) 0.05 0.00-0.20 K/uL Absolute Immature Granulocyte (auto 0.02 0-1 K/uL Lactic Acid Level 1.0 0.8-2.5 mmol/L Ammonia 19 11-32 umol/L Total Creatine Kinase 62 21-232 U/L B-Type Natriuretic Peptide 12 0-100 pg/mL Amylase Level 44 25-115 U/L Lipase 20 16-77 U/L Procalcitonin < 0.05 L 0.05-0.5 ng/mL Thyroid Stimulating Hormone (TSH) 2.43 0.36-3.74 uIU/mL Free Thyroxine (T4) Direct 1.13 0.76-1.46 ng/dL Free Triiodothyronine (T3) pg/mL 2.53 2.18-3.98 pg/mL Test 02/17/25 13:16 02/17/25 13:13 02/17/25 13:10 Range/Units Influenza Type A Antigen Positive For Type A *A NEGATIVE Influenza Type B Antigen Negative For Type B NEGATIVE Urine Opiates Screen NEGATIVE NEGATIVE Urine Barbiturates Screen NEGATIVE NEGATIVE Urine Phencyclidine Screen NEGATIVE NEGATIVE Urine Amphetamines Screen NEGATIVE NEGATIVE Urine Benzodiazepines Screen NEGATIVE NEGATIVE Urine Cocaine Screen NEGATIVE NEGATIVE Urine Marijuana (THC) Screen NEGATIVE NEGATIVE Urine Color COLORLESS YELLOW Urine Appearance CLOUDY H CLEAR Urine pH 5.5 5.0-8.0 Urine Specific [place] 1.005 1.001-1.031 Urine Protein NEGATIVE NEGATIVE mg/dL Urine Glucose (UA) NEGATIVE NEGATIVE mg/dL Urine Ketones NEGATIVE NEGATIVE mg/dL Urine Occult Blood LARGE H NEGATIVE Urine Nitrate NEGATIVE NEGATIVE Urine Bilirubin NEGATIVE NEGATIVE mg/dL Urine Urobilinogen 0.2 0.2-1.0 mg/dL Urine Leukocyte Esterase NEGATIVE NEGATIVE Sanjana/uL Urine RBC 2-5 H 0-1 /HPF Urine WBC 2-5 H 0-1 /HPF Urine Squamous Epithelial Cells MOD 0-2 /HPF Urine Bacteria MOD None Seen /HPF Hemoglobin A1c 5.4 4.0-6.0 % Estimated Average Glucose (eAG) 108 70-126 mg/dL Current Medications Medications (Trade) Dose Ordered Sig/Katina Route PRN Reason Start Time Stop Time Status Last Admin Dose Admin Acetaminophen (TYLenol 325MG TAB) 650 mg Q4H PRN PO MILD PAIN (1-3) 02/17/25 13:00 03/19/25 12:59 02/17/25 18:19 650 MG Acetaminophen (TYLenol 325MG TAB) 650 mg Q6H PRN PO TEMPERATURE GREATER THAN 101.5 02/17/25 13:00 03/19/25 12:59 Acetaminophen (TYLenol 325MG TAB) 650 mg Q6H PRN PO MILD PAIN (1-3) 02/17/25 13:00 02/17/25 13:06 DC Al Hydroxide/Mg Hydroxide (MAALox PLUS 30ML) 30 ml Q6H PRN PO INDIGESTION 02/17/25 13:00 03/19/25 12:59 Dextrose (D50w) 50 ml AD PRN IV HYPOGLYCEMIA PROTOCOL 02/17/25 13:00 03/19/25 12:59 Diphenhydramine HCl (BENAdryl INJ) 25 mg Q6H PRN IV SEVERE ITCHING/RASH 02/17/25 13:00 03/19/25 12:59 Famotidine (Pepcid 20mg Vial) 20 mg BID IV 02/17/25 21:00 03/19/25 20:59 02/19/25 09:57 20 MG Famotidine (Pepcid 20mg Vial) 20 mg BID PRN IV NAUSEA/VOMITING 02/17/25 13:00 02/17/25 13:06 DC Glucagon (Glucagon 1mg Kit) 1 mg AD PRN IM HYPOGLYCEMIA PROTOCOL 02/17/25 13:00 03/19/25 12:59 Guaifenesin/ Dextromethorphan (RobiTUSSin DM 200/20MG 10ML) 10 ml Q4H PRN PO COUGH 02/17/25 13:00 03/19/25 12:59 Heparin Sodium (Porcine) (HEParin 5,000 UNIT VIAL) 5,000 unit BID SQ 02/17/25 21:00 03/19/25 20:59 02/18/25 20:04 5,000 UNIT Hydralazine HCl (APRESOLine 20MG INJ) 5 mg Q6H PRN IV For:SBP above 160;DBP above 90 02/18/25 13:00 03/20/25 12:59 Hydralazine HCl (APRESOLine 20MG INJ) 10 mg Q6H PRN IV For:SBP above 160;DBP above 90 02/17/25 13:00 02/18/25 09:28 DC Ibuprofen (moTRIN) 800 mg Q8H PRN PO MODERATE PAIN (4-6) 02/17/25 13:00 03/19/25 12:59 02/18/25 20:01 800 MG Insulin Human Regular (humuLIN R 100 UNIT/ML 3ML) INSULIN SLIDING SCAL... ACHS SQ 02/17/25 16:30 03/19/25 16:29 Ketorolac Tromethamine (toRADol) 15 mg Q8H PRN IV MODERATE PAIN (4-6) 02/17/25 13:00 02/17/25 13:06 DC Lactulose (Constulose 20gm/ 30ml Udcup) 20 gm BID PRN PO CONSTIPATION 02/17/25 13:00 03/19/25 12:59 Magnesium Sulfate 50 ml @ 0 mls/hr PROTOCOL PRN IV other 02/17/25 13:00 03/19/25 12:59 Morphine Sulfate (morPHINE 2MG SYG) 1 mg Q4H PRN IVP SEVERE PAIN (7-10) 02/17/25 13:00 02/17/25 18:00 DC Morphine Sulfate (morPHINE 4MG SYG) 1 mg Q4H PRN IVP SEVERE PAIN (7-10) 02/17/25 18:30 02/24/25 12:59 02/17/25 18:18 1 MG Nitroglycerin (Nitrostat) 0.4 mg PROTOCOL PRN SL CHEST PAIN 02/17/25 13:00 03/19/25 12:59 Ondansetron HCl (zoFRAN 4MG INJ) 4 mg Q6H PRN IV NAUSEA/VOMITING 02/17/25 13:00 03/19/25 12:59 Oseltamivir Phosphate (Tamiflu) 75 mg BID PO 02/17/25 21:00 02/22/25 20:59 02/18/25 20:00 75 MG Oxycodone/ Acetaminophen (perCOCET) 1 tab Q6H PRN PO SEVERE PAIN (7-10) 02/17/25 13:00 02/17/25 13:06 DC Piperacillin Sod/ Tazobactam Sod 50 ml @ 12.5 mls/hr ZOSY8 IV 02/17/25 13:00 02/18/25 19:59 DC 02/18/25 17:23 12.5 MLS/HR Piperacillin Sod/ Tazobactam Sod (Zosyn 3.375gm+NS 50ml) 3.375 gm Q8H IV 02/19/25 01:00 03/01/25 00:59 02/19/25 09:58 3.375 GM Potassium Chloride 100 ml @ 100 mls/hr AD PRN IV POTASSIUM PROTOCOL 02/17/25 13:00 03/19/25 12:59 Potassium Chloride (K-Dur/Klor-Con 20meq) 20 meq AD PRN PO POTASSIUM PROTOCOL 02/17/25 13:00 03/19/25 12:59 02/19/25 00:11 20 MEQ Potassium Chloride (KCl 10% Elixir 20meq/15ml) 20 meq AD PRN PO POTASSIUM PROTOCOL 02/17/25 13:00 03/19/25 12:59 Sodium Chloride 1,000 ml @ 100 mls/hr Q10H IV 02/17/25 13:00 03/19/25 12:59 02/19/25 05:20 100 MLS/HR Zolpidem Tartrate (AmbIEN) 5 mg HS PRN PO INSOMNIA 02/17/25 13:00 03/19/25 12:59 DIAGNOSTICS / RADIOLOGY: [ ] ASSESSMENT: Left breast abscess POA Recent history of left breast mass s/p biopsy with fluid aspiration POA Influenza a and positive POA Hypertension POA Hyperlipidemia POA History of kidney stones POA History of cholecystectomy POA PLAN: patient remains admitted to medical floor, comfortable in bed, no acute events overnight, discussed with the RN. Patient is scheduled to be taken to the operating room for I and D of left breast area. Continue current pain medication with the adjustment as needed. Continue broad-spectrum IV antibiotics. Continue to follow surgical input and recommendation. Follow a.m. labs. NEURO: Minimize central acting medications as possible. Fall Precautions. Well lighted room through the day and minimize interruptions through the night to prevent acute delirium. PULMONARY: Supplemental 02 as needed BiPAP as necessary, for respiratory distress Titrate Fio2 to keep Spo2 > or = 90% DuoNebs and CPT as needed IS hourly while awake for pulmonary hygiene prn Out of bed to chair as tolerated Maintain aspiration precautions at all times CARDIOVASCULAR: Follow hemodynamics. Vital signs per facility protocol GI & NUTRITION: Continue nutritional support Aspirations precautions Prokinetic agents and laxatives as needed KIDNEYS & ELECTROLYTES: Strict monitoring of intake and output Daily weights Avoid nephrotoxic agents Monitor electrolytes and replace as needed Goal urine output of 30mL/hr or 0.5mL/kg/hr Medications to be dosed according to renal function. Avoid contrast if possible ENDOCRINE: Maintain blood glucose between 100-180 at all times. Insulin sliding scale for blood glucose management Hypoglycemia and hyperglycemia protocol in place INFECTIOUS DISEASE: Trend temperature, WBC and procalcitonin level Follow cultures, deescalate antibiotics as soon as possible. Panculture if new onset fever HEMATOLOGY & COAGULATION: Monitor H&H. Keep Hgb > 7 Transfuse 1 unit of PRBC for Hgb < 7 Transfuse 1 pack of platelets of platelets < 20, 000 Watch for any signs and symptoms of bleeding SKIN: Pressure ulcer prevention per facility protocol Specialty mattress as needed ORTHO/REHAB Continue PT/OT PRN: MEDICATIONS Tylenol 650 mg po every 4 hrs for fever zofran 4 mg IV every 6 hrs for n/v Hydralazine 5 mg IV every 4 hrs systolic pressure > 160 bowel regiment: lactulose 20 gm PO BID PRN constipation Supportive measures: Continue GI and DVT prophylaxis Disposition: Pending improvement in clinical condition All questions answered time spent: > [address] MD Feb 19, 2025 13:05
--- NOTE | 2025-02-19 15:20 | NUR ---
SURGERY pt was brought back up to floor due to scheduled procedure not being performed. Anticipates reschedule for later today or possibly tomorrow.
[2025-02-19] MEDS ORDERED: MIDAZOLAM HCL 1 MG/ML 2ML VIAL ONE (17:32)
[2025-02-19] MEDS: ZOSYN 3.375GM +NS 50ML IVPB ONE (17:57)
[2025-02-19] MEDS: ZOSYN 3.375GM+NS 50ML 50 ML ONE (18:43)
--- NOTE | 2025-02-19 18:45 | NUR ---
S/P SURGERY RECEIVED REPORT FROM PACU NURSE AT THIS TIME.
--- NOTE | 2025-02-19 19:07 | OP ---
Operative Note: DATE OF PROCEDURE: 02/19/25 SURGEON: DAVE CRUZ MD INSTRUMENTATION AND CONTROL TECHNICIAN: [] ANESTHESIA: [] General ANESTHESIOLOGIST/CHIEF TECHNICIAN: [] PREOPERATIVE DIAGNOSIS: [] Left breast abscess POSTOPERATIVE DIAGNOSIS: [] The same SYNOPSIS: [] PROCEDURE: [] Incision and drainage of left breast abscess ESTIMATED BLOOD LOSS: [] None INDICATIONS: [] DESCRIPTION OF PROCEDURE: [] With the patient under general anesthesia I did a periareolar incision over the abscess in the left breast in the lower outer quadrant. Immediately we obtained significant amount of pus and there were sent for cultures. After draining all the purulent material and doing irrigation I packed the wound with iodoform quarter-inch. Procedure was completed without any complication. DAVE CRUZ MD Feb 19, 2025 19:07
[2025-02-20] VITALS (8 sets, daily range): BP systolic 97–115; BP diastolic 60–70; PULSE 64–87; RESP 16–18; TEMP 97.6–98.4; O2SAT 95–96
[2025-02-20 09:56] LABS: NUCLEATED RED BLOOD CELLS 0.0 % (0.0-0.19); PLATELET COUNT (AUTO) 350.0 K/uL (130-400); RED BLOOD CELL COUNT(AUTO) 4.17 MIL/uL (4.00-5.50); RED CELL DISTRIBUTION WIDTH 11.8 % (11.0-15.5); WHITE BLOOD COUNT (AUTO) 8.7 K/uL (4.8-10.8)
[2025-02-20 10:20] LABS: ASPARTATE AMINOTRANSFERASE 14.0 U/L (10-37); CREATININE 0.6 mg/dL (0.5-1.0); GLOMERULAR FILTR. RATE CALC 115.0 mL/min (>90); GLUCOSE,RANDOM 109.0 mg/dL (70-105); SODIUM SERUM 138.0 mmol/L (136-145); TOTAL PROTEIN, SERUM 7.6 g/dL (6.0-8.3); UREA NITROGEN, BLOOD 9.0 mg/dL (7-18)
--- NOTE | 2025-02-20 14:26 | PN ---
[facility] PROGRESS NOTE Date of Service: Feb 20, 2025 Time of Service: 14:23 SUBJECTIVE: 02/18 patient remains admitted to medical floor, comfortably in bed, no acute events overnight, alert oriented x3, hemodynamically stable, afebrile, saturating normal on room air. Hemoglobin 8.9, hematocrit 34.4. Examination done with a female nurse staff at bedside shows an area of induration left breast area, next to the areola. Patient evaluated by General surgery, patient may require incision and drainage. We will follow up. 02/19 patient remains admitted to medical floor, comfortable in bed, no acute events overnight, discussed with the RN. Patient is scheduled to be taken to the operating room for I and D of left breast area. Continue current pain medication with the adjustment as needed. Continue broad-spectrum IV antibiotics. Continue to follow surgical input and recommendation. Follow a.m. labs. 02/20 patient remains admitted to the medical floor, patient is status post I&D 02/19/2025, tolerated the procedure well, getting good pain control with current medical management. We will continue with broad-spectrum IV antibiotics, pain m edication with the adjustment as needed, continue wound dressing, continue to follow surgical input recommendation. Follow a.m. labs. Follow results of cultures. Continue Tamiflu. REVIEW OF SYSTEMS CONSTITUTIONAL: Denies fevers, chills, or night sweats. No unintentional weight loss reported. NEUROLOGICAL: Denies headache, amaurosis fugax, motor weakness, sensory deficit, vertigo/spinning sensation, gait abnormalities, or tremors. ENT: No hearing loss, otalgia, otorrhea, rhinitis, rhinorrhea, hoarseness, or sore throat. CARDIOVASCULAR: Denies any exertional angina, dyspnea on exertion, orthopnea, paroxysmal nocturnal dyspnea, palpitations, life-threatening arrhythmias, claudication. PULMONARY: Denies any shortness of breath, cough, phlegm/sputum, hemoptysis, pleuritic chest pain. SLEEP: Denies morning headaches, daytime somnolence or napping. Denies difficulty falling asleep, staying asleep, waking from sleep. Denies knowledge of snoring. GASTROINTESTINAL: Denies any type of dysphagia to either liquids or solids. Denies nausea, vomiting, pyrosis, early satiety, abdominal pain, diarrhea, constipation, or changes in stool consistency or caliber. Denies coffee-ground emesis, hematemesis, hematochezia, or melanotic stools. GENITOURINARY: Denies frequency, urgency, nocturia, hematuria or incontinence (Storage/Irritative symptoms.) Low urinary stream, straining to void, urinary intermittency or hesitancy, splitting of the voiding stream, terminal dribbling. ENDOCRINOLOGIC: Denies polyuria, polydipsia, polyphagia or heat/cold intolerances. HEMATOLOGIC: Denies thrombophilia/previous clots, or coagulopathy/bleeding disorders. ONCOLOGIC: Denies personal history of malignancy. DERMATOLOGIC: Denies rashes or pruritus. Complains of left breast pain, redness and swelling PSYCHIATRIC: Denies any suicidal or homicidal ideation. Denies hallucinations. PHYSICAL EXAM GENERAL APPEARANCE: The patient is awake, alert, and oriented, in no acute cardiopulmonary distress. NEUROLOGICAL: Cranial nerves II-XII grossly intact. Motor is 5/5 in bilateral upper and lower extremities proximal to distal. No sensory deficits. HEENT: Face is symmetric. Pupils are equal and reactive. Extraocular movements are intact. NECK: Supple. No JVD. No thyromegaly. No submental, submandibular, pre- /postauricular, occipital or supraclavicular lymphadenopathy. CHEST: Normal chest expansion. No Telemetry. LUNGS: Absence of any rales, rhonchi or any wheezing. CARDIOVASCULAR: Regular. S1 and S2 normal. No appreciable rubs, murmurs or gallops. ABDOMEN: Soft, nontender, and nondistended. There is no rebound, voluntary guarding, or rigidity. : Deferred. No [place]. EXTREMITIES: Non-edematous and not cyanotic. No clubbing. Good capillary refill. SKIN: No skin breakdown. Vital Signs (last 8hr) Date Time Temp Pulse Resp B/P (MAP) Pulse Ox O2 Delivery O2 Flow Rate FiO2 02/20/25 12:00 98.1 86 18 107/65 98 Room Air 02/20/25 08:00 98.2 87 18 107/70 95 Room Air 02/20/25 08:00 95 Room Air* 0 21 LABS: Laboratory: Test 02/20/25 11:23 02/20/25 09:40 02/19/25 09:05 Range/Units Whole Blood Glucose 91 70-110 MG/DL White Blood Count 8.7 4.8-10.8 K/uL Red Blood Count 4.17 4.00-5.50 MIL/uL Hemoglobin 12.7 12.0-16.0 g/dL Hematocrit 36.7 36-48 % Mean Corpuscular Volume 88.0 79-99 fL Mean Corpuscular Hemoglobin 30.5 27.0-33.0 pg Mean Corpuscular Hemoglobin Concent 34.6 32.0-36.0 g/dL Red Cell Distribution Width 11.8 11.0-15.5 % Platelet Count 350 130-400 K/uL Mean Platelet Volume 8.7 7.5-10.5 fL Nucleated Red Blood Cells 0.0 0.0-0.19 % Sodium Level 138 136-145 mmol/L Potassium Level 3.4 L 3.5-5.1 mmol/L Chloride Level 101 101-111 mmol/L Carbon Dioxide Level 28 21-32 mmol/L Blood Urea Nitrogen 9 7-18 mg/dL Creatinine 0.6 0.5-1.0 mg/dL Glomerular Filtration Rate Calc 115 >90 mL/min Random Glucose 109 H 70-105 mg/dL Total Calcium 8.4 L 8.5-10.1 mg/dL Magnesium Level 2.10 1.80-2.40 mg/dL Total Bilirubin 0.6 0.2-1.0 mg/dL Aspartate Amino Transf (AST/SGOT) 14 10-37 U/L Alanine Aminotransferase (ALT/SGPT) 27 12-78 U/L Alkaline Phosphatase 133 50-136 U/L Total Protein 7.6 6.0-8.3 g/dL Albumin 3.3 L 3.5-5.0 g/dL Urine HCG, Qualitative NEGATIVE NEGATIVE Current Medications Medications (Trade) Dose Ordered Sig/Katina Route PRN Reason Start Time Stop Time Status Last Admin Dose Admin Acetaminophen (TYLenol 325MG TAB) 650 mg Q4H PRN PO MILD PAIN (1-3) 02/17/25 13:00 03/19/25 12:59 02/17/25 18:19 650 MG Acetaminophen (TYLenol 325MG TAB) 650 mg Q6H PRN PO TEMPERATURE GREATER THAN 101.5 02/17/25 13:00 03/19/25 12:59 Acetaminophen (TYLenol 325MG TAB) 650 mg Q6H PRN PO MILD PAIN (1-3) 02/17/25 13:00 02/17/25 13:06 DC Al Hydroxide/Mg Hydroxide (MAALox PLUS 30ML) 30 ml Q6H PRN PO INDIGESTION 02/17/25 13:00 03/19/25 12:59 Dextrose (D50w) 50 ml AD PRN IV HYPOGLYCEMIA PROTOCOL 02/17/25 13:00 03/19/25 12:59 Diphenhydramine HCl (BENAdryl INJ) 25 mg Q6H PRN IV SEVERE ITCHING/RASH 02/17/25 13:00 03/19/25 12:59 Famotidine (Pepcid 20mg Vial) 20 mg BID IV 02/17/25 21:00 03/19/25 20:59 02/20/25 08:25 20 MG Famotidine (Pepcid 20mg Vial) 20 mg BID PRN IV NAUSEA/VOMITING 02/17/25 13:00 02/17/25 13:06 DC Fentanyl Citrate (FENTanyl CITRate PF 50 MCG/ 1 ML 2ML VIAL) 25 mcg Q5MIN PRN IVP PAIN LEVEL 7 TO 10 02/19/25 19:00 02/19/25 21:18 DC 02/19/25 18:51 25 MCG Glucagon (Glucagon 1mg Kit) 1 mg AD PRN IM HYPOGLYCEMIA PROTOCOL 02/17/25 13:00 03/19/25 12:59 Guaifenesin/ Dextromethorphan (RobiTUSSin DM 200/20MG 10ML) 10 ml Q4H PRN PO COUGH 02/17/25 13:00 03/19/25 12:59 Heparin Sodium (Porcine) (HEParin 5,000 UNIT VIAL) 5,000 unit BID SQ 02/17/25 21:00 03/19/25 20:59 02/20/25 08:39 5,000 UNIT Hydralazine HCl (APRESOLine 20MG INJ) 5 mg Q6H PRN IV For:SBP above 160;DBP above 90 02/18/25 13:00 03/20/25 12:59 Hydralazine HCl (APRESOLine 20MG INJ) 10 mg Q6H PRN IV For:SBP above 160;DBP above 90 02/17/25 13:00 02/18/25 09:28 DC Ibuprofen (moTRIN) 800 mg Q8H PRN PO MODERATE PAIN (4-6) 02/17/25 13:00 02/20/25 14:00 DC 02/20/25 12:02 800 MG Insulin Human Regular (humuLIN R 100 UNIT/ML 3ML) INSULIN SLIDING SCAL... ACHS SQ 02/17/25 16:30 03/19/25 16:29 Ketorolac Tromethamine (toRADol) 15 mg Q6H PRN IV MODERATE PAIN (4-6) 02/20/25 14:00 02/25/25 13:59 Ketorolac Tromethamine (toRADol) 15 mg Q8H PRN IV MODERATE PAIN (4-6) 02/17/25 13:00 02/17/25 13:06 DC Ketorolac Tromethamine (toRADol) 30 mg AD PRN IV PAIN LEVEL 1 TO 3 02/19/25 19:00 02/19/25 21:18 DC Lactulose (Constulose 20gm/ 30ml Udcup) 20 gm BID PRN PO CONSTIPATION 02/17/25 13:00 03/19/25 12:59 Magnesium Sulfate 50 ml @ 0 mls/hr PROTOCOL PRN IV other 02/17/25 13:00 03/19/25 12:59 Metoclopramide HCl (regLAN 10MG IV) 10 mg AD PRN IVP NAUSEA/VOMITING 02/19/25 19:00 02/19/25 21:18 DC Morphine Sulfate (morPHINE 2MG SYG) 1 mg Q4H PRN IVP SEVERE PAIN (7-10) 02/17/25 13:00 02/17/25 18:00 DC Morphine Sulfate (morPHINE 2MG SYG) 2 mg AD PRN IVP PAIN LEVEL 4 TO 6 02/19/25 19:00 02/19/25 21:18 DC Morphine Sulfate (morPHINE 4MG SYG) 1 mg Q4H PRN IVP SEVERE PAIN (7-10) 02/17/25 18:30 02/24/25 12:59 02/19/25 22:17 1 MG Naloxone HCl (NARcan 0.4mg/1 mL) 0.1 mg AD PRN IVP OTHER [SEE ORDER COMMENTS] 02/19/25 18:30 02/19/25 21:18 DC Nitroglycerin (Nitrostat) 0.4 mg PROTOCOL PRN SL CHEST PAIN 02/17/25 13:00 03/19/25 12:59 Ondansetron HCl (zoFRAN 4MG INJ) 4 mg AD PRN IVP NAUSEA/VOMITING 02/19/25 19:00 02/19/25 21:18 DC Ondansetron HCl (zoFRAN 4MG INJ) 4 mg Q6H PRN IV NAUSEA/VOMITING 02/17/25 13:00 03/19/25 12:59 Oseltamivir Phosphate (Tamiflu) 75 mg BID PO 02/17/25 21:00 02/22/25 20:59 02/20/25 08:25 75 MG Oxycodone/ Acetaminophen (perCOCET) 1 tab Q6H PRN PO SEVERE PAIN (7-10) 02/17/25 13:00 02/17/25 13:06 DC Piperacillin Sod/ Tazobactam Sod 50 ml @ 12.5 mls/hr ZOSY8 IV 02/17/25 13:00 02/18/25 19:59 DC 02/18/25 17:23 12.5 MLS/HR Piperacillin Sod/ Tazobactam Sod (Zosyn 3.375gm+NS 50ml) 3.375 gm Q8H IV 02/19/25 01:00 03/01/25 00:59 02/20/25 08:24 3.375 GM Potassium Chloride 100 ml @ 100 mls/hr AD PRN IV POTASSIUM PROTOCOL 02/17/25 13:00 03/19/25 12:59 Potassium Chloride (K-Dur/Klor-Con 20meq) 20 meq AD PRN PO POTASSIUM PROTOCOL 02/17/25 13:00 03/19/25 12:59 02/20/25 12:02 20 MEQ Potassium Chloride (KCl 10% Elixir 20meq/15ml) 20 meq AD PRN PO POTASSIUM PROTOCOL 02/17/25 13:00 03/19/25 12:59 Sodium Chloride 1,000 ml @ 100 mls/hr Q10H IV 02/17/25 13:00 03/19/25 12:59 02/20/25 06:42 100 MLS/HR Zolpidem Tartrate (AmbIEN) 5 mg HS PRN PO INSOMNIA 02/17/25 13:00 03/19/25 12:59 DIAGNOSTICS / RADIOLOGY: [ ] ASSESSMENT: Left breast abscess POA Recent history of left breast mass s/p biopsy with fluid aspiration POA Status post incision and drainage 02/19/2025 Influenza a and positive POA Hypertension POA Hyperlipidemia POA History of kidney stones POA History of cholecystectomy POA PLAN: patient remains admitted to the medical floor, patient is status post I&D 02/19/2025, tolerated the procedure well, getting good pain control with current medical management. We will continue with broad-spectrum IV antibiotics, pain medication with the adjustment as needed, continue wound dressing, continue to follow surgical input recommendation. Follow a.m. labs. Follow results of cult ures. Continue Tamiflu NEURO: Minimize central acting medications as possible. Fall Precautions. Well lighted room through the day and minimize interruptions through the night to prevent acute delirium. PULMONARY: Supplemental 02 as needed BiPAP as necessary, for respiratory distress Titrate Fio2 to keep Spo2 > or = 90% DuoNebs and CPT as needed IS hourly while awake for pulmonary hygiene prn Out of bed to chair as tolerated Maintain aspiration precautions at all times CARDIOVASCULAR: Follow hemodynamics. Vital signs per facility protocol GI & NUTRITION: Continue nutritional support Aspirations precautions Prokinetic agents and laxatives as needed KIDNEYS & ELECTROLYTES: Strict monitoring of intake and output Daily weights Avoid nephrotoxic agents Monitor electrolytes and replace as needed Goal urine output of 30mL/hr or 0.5mL/kg/hr Medications to be dosed according to renal function. Avoid contrast if possible ENDOCRINE: Maintain blood glucose between 100-180 at all times. Insulin sliding scale for blood glucose management Hypoglycemia and hyperglycemia protocol in place INFECTIOUS DISEASE: Trend temperature, WBC and procalcitonin level Follow cultures, deescalate antibiotics as soon as possible. Panculture if new onset fever HEMATOLOGY & COAGULATION: Monitor H&H. Keep Hgb > 7 Transfuse 1 unit of PRBC for Hgb < 7 Transfuse 1 pack of platelets of platelets < 20, 000 Watch for any signs and symptoms of bleeding SKIN: Pressure ulcer prevention per facility protocol Specialty mattress as needed ORTHO/REHAB Continue PT/OT PRN: MEDICATIONS Tylenol 650 mg po every 4 hrs for fever zofran 4 mg IV every 6 hrs for n/v Hydralazine 5 mg IV every 4 hrs systolic pressure > 160 bowel regiment: lactulose 20 gm PO BID PRN constipation Supportive measures: Continue GI and DVT prophylaxis Disposition: Pending improvement in clinical condition All questions answered time spent: > [address] MD Feb 20, 2025 14:26
[2025-02-20] MEDS ORDERED: PoTASSium chloRIDE 20MEQ ER 20 MEQ ERTAB PO ONE (14:30)
--- NOTE | 2025-02-20 14:49 | NUR ---
[facility] Consult: Patient assessed by wound healing team. See wound assessment. Assessment and recommendations provided to primary nurse. Education provided to patient r/t to wound, treatment, and management. Wound care done. Patient teaching with demonstration regarding packing provided to patient and mom. Verbalized understanding. All questions answered..
--- NOTE | 2025-02-20 15:07 | PN ---
This is a 44-year-old female status post I and D to left breast abscess Interval history: This 44-year-old female seen in her room resting Wound care to be performed at this time Patient's pain controlled Labs and vitals stable Cultures currently pending Physical exam General: Awake alert and oriented Heart: Regular rate and rhythm} Lungs: Clear to auscultation no distress Abdomen: [Soft, nontender, nondistended Left breast with packing in place Assessment : This is a 44-year-old female status post I and D to left breast by Dr. Hammonds postop day one Plan: From surgical standpoint patient is cleared for discharge once family has been instructed on appropriate wound care and appropriate antibiotics on board Cultures currently pending but if p.o. antibiotics needed for recommendations Surgical team to recommend Bactrim Patient to follow up in outpatient setting for continued wound care management Dr. Hammonds to be updated patient's status Surgical case has been discussed with my supervising physician in the above plan was formulated and agreed upon We appreciate the hospitalist team for us to participate in patient's care. Greater than 45 minutes of time spent patient, reviewing chart, working on documentation Vitals/Labs Vital Signs Date Time Temp Pulse Resp B/P (MAP) Pulse Ox O2 Delivery O2 Flow Rate FiO2 02/20/25 12:00 98.1 86 18 107/65 98 Room Air 02/20/25 08:00 0 21 Laboratory Tests 02/20/25 09:40 Medications Current Medications Insulin Human Regular INSULIN SLIDING SCAL... ACHS SQ; Start 02/17/25 at 16:30; Stop 03/19/25 at 16:29 Dextrose 50 ml AD PRN IV; Start 02/17/25 at 13:00; Stop 03/19/25 at 12:59 Glucagon 1 mg AD PRN IM; Start 02/17/25 at 13:00; Stop 03/19/25 at 12:59 Potassium Chloride 100 ml @ 100 mls/hr AD PRN IV; Start 02/17/25 at 13:00; Stop 03/19/25 at 12:59 Potassium Chloride 20 meq AD PRN PO; Start 02/17/25 at 13:00; Stop 03/19/25 at 12:59 Potassium Chloride 20 meq AD PRN PO Last administered on 02/20/25at 12:02; Start 02/17/25 at 13:00; Stop 03/19/25 at 12:59 Magnesium Sulfate 50 ml @ 0 mls/hr PROTOCOL PRN IV; Start 02/17/25 at 13:00; Stop 03/19/25 at 12:59 Diphenhydramine HCl 25 mg Q6H PRN IV; Start 02/17/25 at 13:00; Stop 03/19/25 at 12:59 Acetaminophen 650 mg Q6H PRN PO; Start 02/17/25 at 13:00; Stop 03/19/25 at 12:59 Acetaminophen 650 mg Q4H PRN PO Last administered on 02/17/25at 18:19; Start 02/17/25 at 13:00; Stop 03/19/25 at 12:59 Ondansetron HCl 4 mg Q6H PRN IV; Start 02/17/25 at 13:00; Stop 03/19/25 at 12:59 Zolpidem Tartrate 5 mg HS PRN PO; Start 02/17/25 at 13:00; Stop 03/19/25 at 12:59 Al Hydroxide/Mg Hydroxide 30 ml Q6H PRN PO; Start 02/17/25 at 13:00; Stop 03/19/25 at 12:59 Lactulose 20 gm BID PRN PO; Start 02/17/25 at 13:00; Stop 03/19/25 at 12:59 Nitroglycerin 0.4 mg PROTOCOL PRN SL; Start 02/17/25 at 13:00; Stop 03/19/25 at 12:59 Guaifenesin/ Dextromethorphan 10 ml Q4H PRN PO; Start 02/17/25 at 13:00; Stop 03/19/25 at 12:59 Famotidine 20 mg BID PRN IV; Start 02/17/25 at 13:00; Stop 02/17/25 at 13:06; Status DC Heparin Sodium (Porcine) 5,000 unit BID SQ Last administered on 02/20/25at 08:39; Start 02/17/25 at 21:00; Stop 03/19/25 at 20:59 Acetaminophen 650 mg Q6H PRN PO; Start 02/17/25 at 13:00; Stop 02/17/25 at 13:06; Status DC Ibuprofen 800 mg Q8H PRN PO Last administered on 02/20/25at 12:02; Start 02/17/25 at 13:00; Stop 02/20/25 at 14:00; Status DC Ketorolac Tromethamine 15 mg Q8H PRN IV; Start 02/17/25 at 13:00; Stop 02/17/25 at 13:06; Status DC Oxycodone/ Acetaminophen 1 tab Q6H PRN PO; Start 02/17/25 at 13:00; Stop 02/17/25 at 13:06; Status DC Morphine Sulfate 1 mg Q4H PRN IVP; Start 02/17/25 at 13:00; Stop 02/17/25 at 18:00; Status DC Piperacillin Sod/ Tazobactam Sod 50 ml @ 12.5 mls/hr ZOSY8 IV Last administered on 02/18/25at 17:23; Start 02/17/25 at 13:00; Stop 02/18/25 at 19:59; Status DC Sodium Chloride 1,000 ml @ 100 mls/hr Q10H IV Last administered on 02/20/25at 06:42; Start 02/17/25 at 13:00; Stop 03/19/25 at 12:59 Hydralazine HCl 10 mg Q6H PRN IV; Start 02/17/25 at 13:00; Stop 02/18/25 at 09:28; Status DC Famotidine 20 mg BID IV Last administered on 02/20/25at 08:25; Start 02/17/25 at 21:00; Stop 03/19/25 at 20:59 Oseltamivir Phosphate 75 mg BID PO Last administered on 02/20/25at 08:25; Start 02/17/25 at 21:00; Stop 02/22/25 at 20:59 Morphine Sulfate 1 mg Q4H PRN IVP Last administered on 02/19/25at 22:17; Start 02/17/25 at 18:30; Stop 02/24/25 at 12:59 Hydralazine HCl 5 mg Q6H PRN IV; Start 02/18/25 at 13:00; Stop 03/20/25 at 12:59 Piperacillin Sod/ Tazobactam Sod 3.375 gm Q8H IV Last administered on 02/20/25at 08:24; Start 02/19/25 at 01:00; Stop 03/01/25 at 00:59 Midazolam HCl 2 mg STK-MED ONCE .ROUTE; Start 02/19/25 at 17:32; Stop 02/19/25 at 17:32; Status DC Propofol 200 mg STK-MED ONCE IV; Start 02/19/25 at 17:32; Stop 02/19/25 at 17:32; Status DC Fentanyl Citrate 100 mcg STK-MED ONCE .ROUTE; Start 02/19/25 at 17:32; Stop 02/19/25 at 17:32; Status DC Rocuronium Moon 50 mg STK-MED ONCE .ROUTE; Start 02/19/25 at 17:40; Stop 02/19/25 at 17:40; Status DC Piperacillin Sod/ Tazobactam Sod 50 ml @ As Directed STK-MED ONCE .ROUTE; Start 02/19/25 at 17:54; Stop 02/19/25 at 17:54; Status DC Piperacillin Sod/ Tazobactam Sod 3.375 gm STK-MED ONCE IVPB Last administered on 02/19/25at 17:57; Start 02/19/25 at 17:57; Stop 02/19/25 at 18:00; Status DC Ketamine HCl 50 mg STK-MED ONCE .ROUTE; Start 02/19/25 at 18:06; Stop 02/19/25 at 18:06; Status DC Fentanyl Citrate 100 mcg STK-MED ONCE .ROUTE; Start 02/19/25 at 18:07; Stop 02/19/25 at 18:07; Status DC Ondansetron HCl 4 mg AD PRN IVP; Start 02/19/25 at 19:00; Stop 02/19/25 at 21:18; Status DC Metoclopramide HCl 10 mg AD PRN IVP; Start 02/19/25 at 19:00; Stop 02/19/25 at 21:18; Status DC Ketorolac Tromethamine 30 mg AD PRN IV; Start 02/19/25 at 19:00; Stop 02/19/25 at 21:18; Status DC Morphine Sulfate 2 mg AD PRN IVP; Start 02/19/25 at 19:00; Stop 02/19/25 at 21:18; Status DC Fentanyl Citrate 25 mcg Q5MIN PRN IVP Last administered on 02/19/25at 18:51; Start 02/19/25 at 19:00; Stop 02/19/25 at 21:18; Status DC Naloxone HCl 0.1 mg AD PRN IVP; Start 02/19/25 at 18:30; Stop 02/19/25 at 21:18; Status DC Fentanyl Citrate 100 mcg STK-MED ONCE .ROUTE; Start 02/19/25 at 18:50; Stop 02/19/25 at 18:50; Status DC Ketorolac Tromethamine 15 mg Q6H PRN IV Last administered on 02/20/25at 14:33; Start 02/20/25 at 14:00; Stop 02/25/25 at 13:59 Potassium Chloride 40 meq ONCE ONCE PO; Start 02/20/25 at 14:30; Stop 02/20/25 at 14:47; Status DC PRAKASH KNOTT Jr. PAC Feb 20, 2025 15:07
--- NOTE | 2025-02-20 15:16 | NUR ---
NURSING NOTE reported general surgery recommendation to Dr. Hernandez, surgical culture results still pending will readdress discharge tomorrow Addendum: 02/20/25 at 1622 by ALFREDO JAIN RN RN Amended: Links added.
[2025-02-21 03:52] VITALS: BP_SYST 111; BP_SYST 150; BP_DIAS 58; BP_DIAS 92; PULSE 64; RESP 17; TEMP 97.5
[2025-02-21 03:57] LABS: NUCLEATED RED BLOOD CELLS 0.0 % (0.0-0.19); PLATELET COUNT (AUTO) 302.0 K/uL (130-400); RED BLOOD CELL COUNT(AUTO) 3.93 MIL/uL (4.00-5.50); RED CELL DISTRIBUTION WIDTH 11.8 % (11.0-15.5); WHITE BLOOD COUNT (AUTO) 8.1 K/uL (4.8-10.8)
[2025-02-21 04:04] LABS: ASPARTATE AMINOTRANSFERASE 13.0 U/L (10-37); CREATININE 0.7 mg/dL (0.5-1.0); GLOMERULAR FILTR. RATE CALC 111.0 mL/min (>90); GLUCOSE,RANDOM 95.0 mg/dL (70-105); SODIUM SERUM 138.0 mmol/L (136-145); TOTAL PROTEIN, SERUM 7.2 g/dL (6.0-8.3); UREA NITROGEN, BLOOD 14.0 mg/dL (7-18)
[2025-02-21 09:01] VITALS: BP 100/69; PULSE 71; RESP 20; TEMP 98.2
[2025-02-21 10:06] VITALS: O2SAT 98
--- NOTE | 2025-02-21 10:45 | NUR ---
[facility] Follow-up: Patient assessed by wound healing team. Dressing to left breast D/I. Verbal patient education provided to patient r/t to wound care dressing. Verbalized understanding. Mom working at this time, coming in afternoon for wound care teaching, primary nurse to provide wound care teaching with demonstration.
[2025-02-21] MEDS ORDERED: SULF1TAB42 PO (10:55)
[2025-02-21] MEDS ORDERED: OSEL75 PO (10:55)
[2025-02-21 11:13] VITALS: BP 106/69; PULSE 76; RESP 16; TEMP 97.6
--- NOTE | 2025-02-21 15:57 | DS ---
Discharge Summary Hospital Course Summary: The patient admitted to hospital February 17, 2025 with the following history of the present illness: Patient is 44 years old female with a past medical history of cholecystectomy and left breast mass s/p biopsy, who came to emergency department from Dr. Hammonds office for evaluation of possible abscess on left breast. Recently patient was found to have a mass on her left breast. Dr. Lopez order ultrasound breaths and showed abnormalities. Patient underwent biopsy and aspiration of the fluids from the left breast on February 06 2025 at [facility]. Patient then was sent home. Today patient came to Dr. Lopez office for follow-up and there complain of left breast pain, redness and swelling. ENGRAVER LETTERING Bessie from Dr Hammonds office, requested that the patient was sent to emergency department for further recommendations were Dr. Hammonds would be consulted for possible I and D. Most recent vital signs temperature 98.1 pulse 82 respirations 16 blood pressure 127/78 patient is on room air satting 99%. WBC 9.6 hemoglobin 14.4 hematocrit 42.6 platelets 368. Urinalysis negative. Influenza A positive influenza B negative POA Toxicology negative. Lactic acid 1.0. Chest CT pending Patient will be admitted under hospitalist care for further evaluation/recommendation. Surgeon was consulted HOSPITAL COURSE 02/18 patient remains admitted to medical floor, comfortably in bed, no acute events overnight, alert oriented x3, hemodynamically stable, afebrile, saturating normal on room air. Hemoglobin 8.9, hematocrit 34.4. Examination done with a female nurse staff at bedside shows an area of induration left breast area, next to the areola. Patient evaluated by General surgery, patient may require incision and drainage. We will follow up. 02/19 patient remains admitted to medical floor, comfortable in bed, no acute events overnight, discussed with the RN. Patient is scheduled to be taken to the operating room for I and D of left breast area. Continue current pain medication with the adjustment as needed. Continue broad-spectrum IV antibiotics. Continue to follow surgical input and recommendation. Follow a.m. labs. 02/20 patient remains admitted to the medical floor, patient is status post I&D 02/19/2025, tolerated the procedure well, getting good pain control with current medical management. We will continue with broad-spectrum IV antibiotics, pain medication with the adjustment as needed, continue wound dressing, continue to follow surgical input recommendation. Follow a.m. labs. Follow results of cultures. Continue Tamiflu. 02/21 patient is seen and examined at bedside, discussed with the RN, no acute events overnight, patient cleared from surgical standpoint to be discharged home today. Antibiotic treatment with Bactrim recommended by General surgery. Patient to follow up as an outpatient. 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 Immediately we obtained significant amount of pus and there were sent for cultures. After draining all the purulent material and doing irrigation I packed the wound with iodoform quarter-inch. Procedure was completed without any complication. DAVE HAMMONDS MD Feb 19, 2025 19:07 Electronically Signed by: DAVE HAMMONDS MD02/19/25 1907 Electronically Co-Signed by: Assessment/Plan: Final diagnosis Left breast abscess POA Recent history of left breast mass s/p biopsy with fluid aspiration POA Status post incision and drainage 02/19/2025 Influenza a and positive POA Hypertension POA Hyperlipidemia POA History of kidney stones POA History of cholecystectomy POA Discharge Instructions: Patient to be discharged home today, to follow with primary care physician and General surgery as an outpatient. Patient was advised to return to hospital for condition changes. Patient agreed with the plan and understood the information provided. Home Medications: Active Scripts Sulfamethoxazole/Trimethoprim (Bactrim Ds Tablet) 800 Mg-160 Mg Tablet, 1 TAB PO BID for 10 Days, #20 TAB 1 Refill Prov:ARIC STREET MD 02/21/25 Oseltamivir Phosphate (Tamiflu) 75 Mg Cap, 75 MG PO BID, #3 CAP 0 Refills Prov:ARIC STREET MD 02/21/25 Reported Medications Multivitamins,Therapeutic (Multivitamin Tablet) 400 Mcg Tab, 1 TAB PO DAILY for 30 Days, #30 TAB 0 Refills 02/17/25 Vitamin E Mixed (Vitamin E) 1,000 Unit Capsule, 1 CAP PO DAILY for 30 Days, #30 CAP 0 Refills 02/17/25 Time spent arranging discharge: 31-[address] MD Feb 21, 2025 15:57
--- NOTE | 2025-02-21 16:27 | NUR ---
DISCHARGED PATIENT WAS EDUCATED ON THE IMPORTANCE OF FOLLOWING UP WITH DR. MERCHANT. APPT HAS BEEN SET UP FOR PATIENT. PATIENT WAS ADVISED TO CALL [facility] ON MONDAY AT 0800. PATIENT VERBALIZED UNDERSTANDING. IV WAS REMOVED WITHOUT COMPLICATIONS AND PATIENT IS CURRENTLY IN THE SHOWER AND WOUND CARE PENDING TO BE DONE.
--- NOTE | 2025-02-21 18:00 | NUR ---
WOUND CARE PATIENT WOUNDCARE WAS PROVIDED. REMOVED ABDOMINAL PAD AND PACKING. SEROSANGUINEOUS DRAINAGE NOTED. PICTURES WERE TAKEN. RINSED WITH NS AND PAT DRY. APPLIED 1/2 PACKING STRIPS AND APPLIED 4X4 GAUZE WITH ABD PAD AND MEDIPORE TAPE. PT ONOFRE WELL.
--- NOTE | 2025-02-21 18:53 | NUR ---
DISCHARGED PATIENT WAS TRANSPORTED TO THE MAIN LOBBY VIA W/C BY NURSE. NO S/S OF DISTRESS NOTED.
== END 2025-02-21 18:50 | disposition home or self-care (01) | DRG 585 ==
LOC: EDH 12:12 → EDHIP 12:56 → 1MS 22:05 → 4AH 22:08
PROVIDERS: ADMIT Internal Medicine; ATTEND Internal Medicine
PROC: 0H9U0ZZ Drainage of Left Breast, Open Approach (ICD-10-PCS; principal; 2025-02-19 17:31)
DX: N61.1 Abscess of the breast and nipple (principal); E78.5 Hyperlipidemia, unspecified; J10.1 Influenza due to other identified influenza virus with other respiratory manifestations; I10 Essential (primary) hypertension; N63.20 Unspecified lump in the left breast, unspecified quadrant; Z87.442 Personal history of urinary calculi; Z90.49 Acquired absence of other specified parts of digestive tract
CPT/HCPCS: 36415; 71250; 80053; 80305; 81001; 81025; 82140; 82150; 82550; 82948; 83036; 83605; 83690; 83735; 83880; 84145; 84439; 84443; 84481; 85025; 85027; 87040; 87070; 87076; 87086; 87205; 87804; 99285; G0378; J1644; J1885; J2250; J2270; J2543; J2704; J3010; J3490; J7030; J7120; A4216; A4222; A4223; J1308